=== PATIENT | female | born 1980 | race African-American/Black ===

== ENCOUNTER 2018-12-05 16:28 | Inpatient (IN) | payer SELFPAY ==
[~2018-12-05] VITALS: Ht 152.4 cm; Wt 54.4 kg
--- NOTE | 2018-12-05 16:39 | NUR ---
called- not in room
[2018-12-05 17:30] LABS: BASOPHILS % (AUTO) 2.1 % (0.0-2.0); HEMATOCRIT 45.4 % (37.0-47.0); MEAN CORPUSCULAR VOLUME 98 FL (80-99); MONOCYTES % (AUTO) 6.6 % (1.0-10.0); NEUTROPHILS % (AUTO) 77.2 % (45.0-75.0); PLATELET COUNT 310 K/UL (150-450); RED BLOOD COUNT 4.61 M/UL (4.20-5.40); RED CELL DISTRIBUTION WIDTH 11.2 % (11.6-14.8); WHITE BLOOD COUNT 7.4 K/UL (4.8-10.8)
[2018-12-05 17:44] LABS: INR 0.9 (0.9-1.1)
[2018-12-05] MEDS ORDERED: Nail Polish Remover TOPIC ONE (17:45)
[2018-12-05 17:46] LABS: APPEARANCE,URINE CLEAR; BILIRUBIN, URINE NEGATIVE (NEGATIVE); COLOR,URINE PALE YELLOW; GLUCOSE, URINE (UA) NEGATIVE (NEGATIVE); KETONES,URINE 4+ (NEGATIVE); LEUKOCYTE ESTERASE ,URINE 2+ (NEGATIVE); NITRITE,URINE NEGATIVE (NEGATIVE); PH,URINE 5 (4.5-8.0); PROTEIN,URINE 2+ (NEGATIVE); UROBILINOGEN,URINE NORMAL MG/DL (0.0-1.0)
[2018-12-05 17:59] LABS: ALANINE AMINOTRANSFERASE 14 U/L (12-78); ALBUMIN 4.5 G/DL (3.4-5.0); ALKALINE PHOSPHATASE 55 U/L (46-116); ANION GAP 8 mmol/L (5-15); ASPARTATE AMINO TRANSFERASE 13 U/L (15-37); BILIRUBIN,TOTAL 0.6 MG/DL (0.2-1.0); BLOOD UREA NITROGEN 9 mg/dL (7-18); CARBON DIOXIDE 28 MMOL/L (21-32); CHLORIDE 100 MMOL/L (98-107); CKMB < 0.5 NG/ML (0.0-3.6); CREATININE 0.9 MG/DL (0.55-1.30); POTASSIUM 4.7 MMOL/L (3.5-5.1); SODIUM 136 MMOL/L (136-145)
[2018-12-05 18:00] LABS: CALCIUM 14.6 MG/DL (8.5-10.1)
[2018-12-05 18:14] VITALS: BP 150/96
--- NOTE | 2018-12-05 18:17 | NUR ---
ED Nurse Note: pt from home c/o abd pain that goes to back ermd eval done blood and urine sent . nail syrian remover not used returned to pharmacy and ivf changed to ns bolus pt down to ct
--- NOTE | 2018-12-05 19:15 | NUR ---
ED Nurse Note: RECIEVED REPORT FROM AM NURSE TO RESUME CARE, PT IN BED AWAKE, ALERT AND ORIENTED X 4, PT AMBULATED TO BATHROOM AND [id number] WELL, HAS PATENT SALINE LOCK IN RIGHT AC, FLUIDS INFUSING, PT DENIES PAIN AT THIS TIME, WILL RESUME CARE AND PREPARE FOR ADMISSION, PT HAS ROOM BUT NO MD TO MD CONTACT YET, WAITING FO9R OK TO SEND TO FLOOR BED. PT FAMILY AT BEDSIDE.
--- NOTE | 2018-12-05 19:24 | NUR ---
HAND-OFF: Report given to Altagracia SEQUEIRA.
[2018-12-05] MEDS ORDERED: NKM (19:33)
[2018-12-05] MEDS ORDERED: Miralax 17gm pkt ORAL PRN (19:45)
[2018-12-05] MEDS ORDERED: Promethazine HCl 25 MG in NS 55 ML IV PRN (19:45)
[2018-12-05] MEDS ORDERED: Promethazine HCl 12.5 MG in NS 55 ML IV PRN (19:45)
[2018-12-05] MEDS ORDERED: Nitroglycerin Subl 0.4mg tab SL PRN (19:45)
[2018-12-05] MEDS ORDERED: LORazepam Inj 2mg/ml 1ml IV PRN (19:45)
[2018-12-05 20:00] VITALS: BP 136/91
[2018-12-05] MEDS ORDERED: D5 1/2NS 1,000 ML IV SCH (20:00)
--- NOTE | 2018-12-05 20:10 | NUR ---
PT HAD EPISODE OF VOMITING X 2 WITH INCREASD PAIN, PT MEDICATED WITH PRN MEDS, ERMAINS ON MONITORING, IV PATENT WITH FLUIDS INFUSING, WILL MONITOR CLOSELY FOR MED EFFCTIVENESS OR ANY ACUTE CHANGES, CONTINUING TO WAIT FOR OK TO ADMIT.
[2018-12-05] MEDS: Metoclopramide 10mg/2ml Inj IVP PRN (20:22)
[2018-12-05] MEDS: Morphine Sulfate 2mg/ml Inj(IV/IM USE ONLY) IVP PRN (20:24)
--- NOTE | 2018-12-05 20:24 | Emergency Room Report ---
History of Present Illness General Chief Complaint: Nausea Source: Patient (Bebe Guzmán) Present Illness HPI 38-year-old female with no significant past medical history here complaining of 4 days of acute onset of left lower quadrant abdominal pain and multiple bouts of nonbloody emesis. Patient does not recall whether it started after eating certain food denying eating anything greasy, acidic, spicy. Denies alcohol intake, smoking tobacco, or any drug use. Patient complains of constipation and reports that the last time she made a bowel movement and was in shapes of pallets however denies any blood in her stool. Denies fever and chills, chest pain, shortness of breath, palpitation, dizziness and headache. Patient last menstrual. Was 3 weeks ago and reports that she did a test at home was negative. Denies vaginal discharge, bleeding, hematuria, urinary symptoms. She further complains of new onset of 10 out of 10 headache that started today without radiation. Also reports that for a few weeks she has been having 5 out of 10 pain without any injury in both eyes and generalized weakness. Patient is self-pay and has not been seen by any physician in over 1 year. Denies psychiatric history, intake of any medication or supplements. (Bebe Guzmán) Allergies: Coded Allergies: No Known Allergies (Unverified , 12/05/18) Patient History Past Medical History: see triage record Past Surgical History: unable to obtain Pertinent Family History: none Last Menstrual Period: 11/17/18 Now: No Immunizations: UTD Reviewed Nursing Documentation: PMH: Agreed; PSxH: Agreed (Bebe Guzmán) Nursing Documentation-PMH Past Medical History: No History, Except For (Bebe Guzmán) Review of Systems All Other Systems: negative except mentioned in HPI (Bebe Guzmán) Physical Exam Vital Signs Date Time Temp Pulse Resp B/P (MAP) Pulse Ox O2 Delivery O2 Flow Rate FiO2 12/05/18 16:42 98.4 106 16 150/109 (123) 99 Room Air Sp02 EP Interpretation: reviewed, normal General Appearance: normal inspection, well appearing, no apparent distress, alert, GCS 15 Head: normocephalic, atraumatic Eyes: bilateral eye normal inspection, bilateral eye PERRL ENT: normal ENT inspection, hearing grossly normal, normal pharynx Neck: normal inspection, full range of motion, supple, thyroid normal Respiratory: normal inspection, chest non-tender, normal breath sounds, no rhonchi, no retraction, no wheezing Cardiovascular #1: normal inspection, regular rate, rhythm, no edema, no murmur Gastrointestinal: non tender, soft, no mass, no pulsatile mass, guarding - LLQ , other - Negative McBurney's and Rovsing's Rectal: deferred Genitourinary: no CVA tenderness Musculoskeletal: normal inspection, back normal, digits/nails normal Neurologic: normal inspection, alert, oriented x3, responsive, groundman III-XII nml as tested Psychiatric: normal inspection, judgement/insight normal Skin: no rash, palpation normal, normal color Lymphatic: normal inspection, no adenopathy (Bebe Guzmán) Medical Decision Making PA Attestation Diagnosis and treatment plans were reviewed and discussed with my supervising physician Dr. Dia (Bebe Guzmán) Medicare Attestation I discussed the care with Bebe MUNGUIA on 12/05/2018. I agree with the findings and plan as documented in the note. 38-year-old female presents with symptomatic hypercalcemia, unknown origin, patient will need to be admitted for observation, and work-up of her new onset of hypercalcemia, differential includes hyperparathyroidism, malignancy. Fluid rehydration was given, patient was admitted (Silvio Dia M.D.) Diagnostic Impression: Primary Impression: Hypercalcemia Additional Impression: Diffuse leiomyomatosis of uterus ER Course 38-year-old female with no significant past medical history here complaining of 4 days of acute onset of left lower quadrant abdominal pain and multiple bouts of nonbloody emesis. Patient does not recall whether it started after eating certain food denying eating anything greasy, acidic, spicy. Denies alcohol intake, smoking tobacco, or any drug use. Patient complains of constipation and reports that the last time she made a bowel movement and was in shapes of pallets however denies any blood in her stool. Denies fever and chills, chest pain, shortness of breath, palpitation, dizziness and headache. Patient last menstrual. Was 3 weeks ago and reports that she did a test at home was negative. Denies vaginal discharge, bleeding, hematuria, urinary symptoms. She further complains of new onset of 10 out of 10 headache that started today without radiation. Also reports that for a few weeks she has been having 5 out of 10 pain without any injury in both eyes and generalized weakness. Patient is self-pay and has not been seen by any physician in over 1 year. Denies psychiatric history, intake of any medication or supplements. Ddx considered but are not limited to: appendicitis, cholycisitis, gastritis, gasthroentritis, UTI, pylonephritis, SBO, diverticulitis, influenza with GI manifestation, TX, complication with , abdominal pain secondary to hypercalcemia Vital signs: are WNL, pt. is afebrile H&PE are most consistent with: Abdominal pain secondary to hypercalcemia ORDERS: abdominal CT, abdominal pain set, EKG, ED INTERVENTIONS: NS bolus, Zofran, Reglan Patient was admited with diagnosis of hypercalcemia symptomatic to Dr. Momin under supervision of : [place] pt stable at time of admission ca 14.6 (Bebe Guzmán) Chest X-Ray Diagnostic Results Chest X-Ray Diagnostic Results : Chest X-Ray Ordered: Yes # of Views/Limited/Complete: 1 View Indication: Chest Pain EP Interpretation: Yes PA Xray: Interpretation reviewed, by supervising MD, and agrees with findings. Interpretation: no consolidation, no effusion, no pneumothorax Impression: No acute disease Electronically Signed by: Bebe Faustin PA-C) CT/MRI/US Diagnostic Results CT/MRI/US Diagnostic Results #1: Imaging Test Ordered: CT abdomen pelvis no contrast Impression CT ABDOMEN & PELVIS Without Contrast: Normal appendix. No acute process along the GI tract. Leiomyomatous uterus. The remainder the solid organs are unremarkable. No free fluid or inflammatory changes. CT/MRI/US Diagnostic Results #2: Imaging Test Ordered: CT head no contrast Impression CT HEAD Without Contrast: No acute intracranial hemorrhage, extra-axial fluid collection, edema, mass effect, or ischemic infarct. The paranasal sinuses and mastoid air cells are clear. No fracture. (Bebe Guzmán) Last Vital Signs Date Time Temp Pulse Resp B/P (MAP) Pulse Ox O2 Delivery O2 Flow Rate FiO2 12/05/18 18:14 98.4 90 13 150/96 100 Room Air (Bebe Guzmán) Disposition: ADMITTED INPATIENT Condition: Stable Referrals: NOT CHOSEN IPA/,REFERRING (PCP) Bebe Guzmán Dec 05, 2018 20:24 Silvio Dia M.D. Dec 06, 2018 11:32
--- NOTE | 2018-12-05 20:40 | NUR ---
ED Nurse Note: Pt now ready for admission, report called to cristiano keane on unit, pt in bed awake, alert and oriented x 4, reglan and morphine givn effective , pain at 5/10 and vomiting resolved, iv site patent, belongings list completed, all forms and admit packet present, pt being taken to unit via gurney and acls protocols, nad noted during transpsort to floor bed with rn and er-tech.
[2018-12-05 21:00] VITALS: BP 120/76
--- NOTE | 2018-12-05 21:00 | NUR ---
received pt from ER, pt AAOX4, ambulatory, no past medical history. pt constipated, no BM for the last 4 days, fall precaution in place: bed locked and lowest position, bed side rail up x2, will continue to monitor for n/v. admission orders noted and carried out.
[2018-12-05] MEDS: Heparin 5000 units/ml inj SUBQ SCH (21:20)
--- NOTE | 2018-12-05 22:20 | Consultation ---
Consult Note Consult Note 38-year-old female with no significant past medical history here complaining of 4 days of acute onset of left lower quadrant abdominal pain and multiple bouts of nonbloody emesis. Patient does not recall whether it started after eating certain food denying eating anything greasy, acidic, spicy. Denies alcohol intake, smoking tobacco, or any drug use. Patient complains of constipation and reports that the last time she made a bowel movement and was in shapes of pallets however denies any blood in her stool. Denies fever and chills, chest pain, shortness of breath, palpitation, dizziness and headache. Patient last menstrual. Was 3 weeks ago and reports that she did a test at home was negative. Denies vaginal discharge, bleeding, hematuria, urinary symptoms. She further complains of new onset of 10 out of 10 headache that started today without radiation. Also reports that for a few weeks she has been having 5 out of 10 pain without any injury in both eyes and generalized weakness. Patient is self-pay and has not been seen by any physician in over 1 year. Denies psychiatric history, intake of any medication or supplements. Allergies: Coded Allergies: No Known Allergies (Unverified , 12/05/18) interviewed denies taking any Vit supplement Assessment/Plan Hypercalcemia: Etiology?? plan Hydrate Lasix PTH TSH Phos Mag Calcitonin per orders Alfredo Charles MD Dec 05, 2018 22:20
[2018-12-06] VITALS: BP 128/88
--- NOTE | 2018-12-06 | NUR ---
NURSE NOTES: pt sleeping, no change in condition. will continue to monitor for any change in condition.
[2018-12-06 04:00] VITALS: BP 125/77
--- NOTE | 2018-12-06 05:10 | NUR ---
NURSE NOTES: pt stable, no change in condition. will continue to monitor for any change in condition.
--- NOTE | 2018-12-06 06:47 | NUR ---
NURSE NOTES: pt remains stable, no change in condition. no N/V or abd pain during my shift. pt NPO. fall precautions in place: bed locked and lowest position. bedside rail up x 2, call light and personal belongings within pt's reach. all needs met during my shift. will endorse plan of care to incoming nurse.
--- NOTE | 2018-12-06 07:17 | NUR ---
HAND-OFF: Report given to HUA Gil.
--- NOTE | 2018-12-06 07:25 | NUR ---
NURSE NOTES: I received the patient awake and resting in bed. Patient alert and oriented x4. Patient's bed in the lowest position and call light within reach. Patient does not display any signs of distress or SOB. I will continue to monitor the patient and implement care.
[2018-12-06 07:51] LABS: BASOPHILS % (AUTO) 0.9 % (0.0-2.0); EOSINOPHILS % (AUTO) 0.3 % (0.0-3.0); HEMATOCRIT 39.3 % (37.0-47.0); HEMOGLOBIN 13.2 G/DL (12.0-16.0); LYMPHOCYTES % (AUTO) 22.4 % (20.0-45.0); MEAN CORPUSCULAR VOLUME 99 FL (80-99); MONOCYTES % (AUTO) 9.1 % (1.0-10.0); NEUTROPHILS % (AUTO) 67.3 % (45.0-75.0); PLATELET COUNT 268 K/UL (150-450); RED BLOOD COUNT 3.98 M/UL (4.20-5.40); RED CELL DISTRIBUTION WIDTH 11.4 % (11.6-14.8); WHITE BLOOD COUNT 5.3 K/UL (4.8-10.8)
[2018-12-06 08:00] VITALS: BP 111/70
[2018-12-06 08:20] LABS: ALANINE AMINOTRANSFERASE 9 U/L (12-78); ALBUMIN 3.4 G/DL (3.4-5.0); ALBUMIN/GLOBULIN RATIO 0.8 (1.0-2.7); ALKALINE PHOSPHATASE 46 U/L (46-116); AMYLASE 39 U/L (25-115); ANION GAP 8 mmol/L (5-15); ASPARTATE AMINO TRANSFERASE 11 U/L (15-37); BILIRUBIN,TOTAL 0.5 MG/DL (0.2-1.0); BLOOD UREA NITROGEN 8 mg/dL (7-18); CARBON DIOXIDE 25 MMOL/L (21-32); CHLORIDE 106 MMOL/L (98-107); CHOLESTEROL 137 MG/DL (< 200); CREATININE 0.9 MG/DL (0.55-1.30); HDL CHOLESTEROL 43 MG/DL (40-60); POTASSIUM 4.6 MMOL/L (3.5-5.1); SODIUM 139 MMOL/L (136-145); TRIGLYCERIDES 75 MG/DL (30-150)
[2018-12-06 08:25] LABS: CALCIUM 13.2 MG/DL (8.5-10.1)
[2018-12-06 08:29] LABS: CREATINE KINASE 17 U/L (26-308); GAMMA GLUTAMYL TRANSPEPTIDASE 21 U/L (5-85); PHOSPHORUS 1.9 MG/DL (2.5-4.9)
[2018-12-06] MEDS ORDERED: Docusate 100mg cap ORAL SCH (09:00)
[2018-12-06] MEDS ORDERED: Pantoprazole Inj IV SCH (09:00)
[2018-12-06] MEDS: Heparin 5000 units/ml inj SUBQ SCH ×2 (09:05→21:00)
[2018-12-06] MEDS: D5 1/2NS 1,000 ML IV SCH ×2 (10:39→18:23)
--- NOTE | 2018-12-06 10:42 | Consultation ---
History of Present Illness General Date patient seen: Dec 06, 2018 Chief Complaint: Nausea Reason for Consultation: Abd pain Present Illness HPI Ms. Holliday is a 38 yo female who presented to the ED on 12/05/18 with 4 days of abdmonal pain and vomiting. She reports no diarrhea but dose have an Hx of constipation. When she does have a BM she reports small round stools. Other associated symptom os headaches. She has had no associated f/c, Dysuria, Hematuria, Blood in stool, SOB, Sick contacts. ID was consulted for Abd pain PMHx/PSHx None SocHx No E/T/D FamHx Not Contributory Allergies: Coded Allergies: No Known Allergies (Unverified , 12/05/18) Medication History Scheduled No Known Medications* (NKM - No Known Medications*), 0 ., (Reported) Patient History Healthcare decision maker Resuscitation status Full Code Advanced Directive on File No Review of Systems ROS Narrative 12 point ROS negative except as noted in the HPI Physical Exam Last 24 Hour Vital Signs Date Time Temp Pulse Resp B/P (MAP) Pulse Ox O2 Delivery O2 Flow Rate FiO2 12/06/18 09:00 Room Air 12/06/18 08:00 97.1 58 20 111/70 (84) 100 12/06/18 08:00 59 12/06/18 04:00 57 12/06/18 04:00 98.0 92 19 125/77 (93) 99 12/06/18 00:00 98.5 87 19 128/88 (101) 99 12/06/18 00:00 61 12/05/18 22:23 Room Air 12/05/18 21:12 98.4 82 16 136/91 100 Room Air 12/05/18 21:00 98.6 98 20 120/76 (91) 100 12/05/18 21:00 83 12/05/18 20:00 98.4 82 16 136/91 100 Room Air 12/05/18 18:14 98.4 90 13 150/96 100 Room Air 12/05/18 16:42 98.4 106 16 150/109 (123) 99 Room Air Intake and Output 12/05/18 12/06/18 18:59 06:59 Intake Total 1500 ml Balance 1500 ml Intake IV Total 600 ml Other 900 ml # Voids 1 4 Laboratory Tests Test 7/13/19 17:10 12/05/18 17:19 12/06/18 07:37 White Blood Count 7.4 K/UL (4.8-10.8) 5.3 K/UL (4.8-10.8) Red Blood Count 4.61 M/UL (4.20-5.40) 3.98 M/UL (4.20-5.40) L Hemoglobin 15.0 G/DL (12.0-16.0) 13.2 G/DL (12.0-16.0) Hematocrit 45.4 % (37.0-47.0) 39.3 % (37.0-47.0) Mean Corpuscular Volume 98 FL (80-99) 99 FL (80-99) Mean Corpuscular Hemoglobin 32.5 PG (27.0-31.0) H 33.1 PG (27.0-31.0) H Mean Corpuscular Hemoglobin Concent 33.0 G/DL (32.0-36.0) 33.6 G/DL (32.0-36.0) Red Cell Distribution Width 11.2 % (11.6-14.8) L 11.4 % (11.6-14.8) L Platelet Count 310 K/UL (150-450) 268 K/UL (150-450) Mean Platelet Volume 6.6 FL (6.5-10.1) 6.8 FL (6.5-10.1) Neutrophils (%) (Auto) 77.2 % (45.0-75.0) H 67.3 % (45.0-75.0) Lymphocytes (%) (Auto) 14.0 % (20.0-45.0) L 22.4 % (20.0-45.0) Monocytes (%) (Auto) 6.6 % (1.0-10.0) 9.1 % (1.0-10.0) Eosinophils (%) (Auto) 0.0 % (0.0-3.0) 0.3 % (0.0-3.0) Basophils (%) (Auto) 2.1 % (0.0-2.0) H 0.9 % (0.0-2.0) Prothrombin Time 10.0 SEC (9.30-11.50) Prothromb Time International Ratio 0.9 (0.9-1.1) Activated Partial Thromboplast Time 32 SEC (23-33) 35 SEC (23-33) H Sodium Level 136 MMOL/L (136-145) 139 MMOL/L (136-145) Potassium Level 4.7 MMOL/L (3.5-5.1) 4.6 MMOL/L (3.5-5.1) Chloride Level 100 MMOL/L (98-107) 106 MMOL/L (98-107) Carbon Dioxide Level 28 MMOL/L (21-32) 25 MMOL/L (21-32) Anion Gap 8 mmol/L (5-15) 8 mmol/L (5-15) Blood Urea Nitrogen 9 mg/dL (7-18) 8 mg/dL (7-18) Creatinine 0.9 MG/DL (0.55-1.30) 0.9 MG/DL (0.55-1.30) Estimat Glomerular Filtration Rate > 60 mL/min (>60) > 60 mL/min (>60) Glucose Level 123 MG/DL (74-106) H 116 MG/DL (74-106) H Calcium Level 14.6 MG/DL (8.5-10.1) *H 13.2 MG/DL (8.5-10.1) *H Total Bilirubin 0.6 MG/DL (0.2-1.0) 0.5 MG/DL (0.2-1.0) Aspartate Amino Transf (AST/SGOT) 13 U/L (15-37) L 11 U/L (15-37) L Alanine Aminotransferase (ALT/SGPT) 14 U/L (12-78) 9 U/L (12-78) L Alkaline Phosphatase 55 U/L (46-116) 46 U/L (46-116) Creatine Kinase MB < 0.5 NG/ML (0.0-3.6) Troponin I 0.004 ng/mL (0.000-0.056) Total Protein 8.9 G/DL (6.4-8.2) H 7.7 G/DL (6.4-8.2) Albumin 4.5 G/DL (3.4-5.0) 3.4 G/DL (3.4-5.0) Globulin 4.4 g/dL 4.3 g/dL Albumin/Globulin Ratio 1.0 (1.0-2.7) 0.8 (1.0-2.7) L Lipase 57 U/L (73-393) L 66 U/L (73-393) L Serum Alcohol < 3 mg/dL Urine Color Pale yellow Urine Appearance Clear Urine pH 5 (4.5-8.0) Urine Specific [place] 1.025 (1.005-1.035) Urine Protein 2+ (NEGATIVE) H Urine Glucose (UA) Negative (NEGATIVE) Urine Ketones 4+ (NEGATIVE) H Urine Blood 1+ (NEGATIVE) H Urine Nitrite Negative (NEGATIVE) Urine Bilirubin Negative (NEGATIVE) Urine Urobilinogen Normal MG/DL (0.0-1.0) Urine Leukocyte Esterase 2+ (NEGATIVE) H Urine RBC 2-4 /HPF (0 - 2) H Urine WBC 10-15 /HPF (0 - 2) H Urine Squamous Epithelial Cells Moderate /LPF (NONE/OCC) H Urine Bacteria Moderate /HPF (NONE) H Urine HCG, Qualitative Negative (NEGATIVE) Urine Opiates Screen Negative (NEGATIVE) Urine Barbiturates Screen Negative (NEGATIVE) Phencyclidine (PCP) Screen Negative (NEGATIVE) Urine Amphetamines Screen Negative (NEGATIVE) Urine Benzodiazepines Screen Negative (NEGATIVE) Urine Cocaine Screen Negative (NEGATIVE) Urine Marijuana (THC) Screen Positive (NEGATIVE) H Hemoglobin A1c 4.8 % (4.3-6.0) Uric Acid 2.5 MG/DL (2.6-7.2) L Calcium (Send out) Pending Phosphorus Level 1.9 MG/DL (2.5-4.9) L Magnesium Level 2.0 MG/DL (1.8-2.4) Gamma Glutamyl Transpeptidase 21 U/L (5-85) Total Creatine Kinase 17 U/L (26-308) L C-Reactive Protein, Quantitative 1.9 mg/dL (0.00-0.90) H Pro-B-Type Natriuretic Peptide 94 pg/mL (0-125) Triglycerides Level 75 MG/DL (30-150) Cholesterol Level 137 MG/DL (< 200) LDL Cholesterol 76 mg/dL (<100) HDL Cholesterol 43 MG/DL (40-60) Cholesterol/HDL Ratio 3.2 (3.3-4.4) L Amylase Level 39 U/L (25-115) Thyroid Stimulating Hormone (TSH) 1.052 uiU/mL (0.358-3.740) Parathyroid Hormone (Intact) Pending Microbiology Date/Time Source Procedure Growth Status 12/05/18 17:19 Urine,Clean Catch Urine Culture - Preliminary Gram Negative Santhosh Resulted Height (Feet): 5 Weight (Pounds): 120 Medications Current Medications Medications (Trade) Dose Ordered Sig/Oral Route PRN Reason Start Time Stop Time Status Last Admin Dose Admin Acetaminophen (Tylenol) 650 mg Q4H PRN ORAL fever (temp>100.5F) 12/05/18 19:45 01/04/19 19:44 Calcitonin [place] (Miacalcin) 1 sprays DAILY NASAL 12/06/18 09:00 01/05/19 08:59 12/06/18 09:59 Clonidine HCl (Catapres Tab) 0.1 mg Q4H PRN ORAL bp 165 syst 12/05/18 22:30 01/04/19 22:29 Dextrose (Dextrose 50%) 25 ml Q30M PRN IV Hypoglycemia 12/05/18 19:45 01/04/19 19:44 Dextrose (Dextrose 50%) 50 ml Q30M PRN IV Hypoglycemia 12/05/18 19:45 01/04/19 19:44 Dextrose/Sodium Chloride 1,000 ml @ 125 mls/hr Q8H IV 12/06/18 10:23 01/05/19 10:22 Diphenhydramine HCl (Benadryl) 25 mg Q6H PRN ORAL Itching/Pruritis 12/05/18 19:45 01/04/19 19:44 Docusate Sodium (Colace) 100 mg TWICE A DAY ORAL 12/06/18 09:00 01/05/19 08:59 12/06/18 09:04 Furosemide (Lasix) 20 mg ONCE IV 12/06/18 10:30 12/06/18 12:00 Heparin Sodium (Porcine) (Heparin 5000 units/ml) 5,000 units EVERY 12 HOURS SUBQ 12/05/18 21:00 01/04/19 20:59 12/06/18 09:05 Lorazepam (Ativan 2mg/ml 1ml) 1 mg Q4H PRN IV agitation 12/05/18 19:45 12/12/18 19:44 Metoclopramide HCl (Reglan) 10 mg Q6H PRN IVP severe nausea 12/05/18 19:45 01/04/19 19:44 12/05/18 20:22 Morphine Sulfate (Morphine Sulfate) 2 mg Q4H PRN IVP severe Pain (Pain Scale 7-10) 12/05/18 19:45 12/12/18 19:44 12/05/18 20:24 Nitroglycerin (Ntg) 0.4 mg Q5M X 3 DOSES PRN SL Prn Chest Pain 12/05/18 19:45 01/04/19 19:44 Pantoprazole (Protonix) 40 mg ACBREAKFAST ORAL 12/06/18 06:30 01/05/19 06:29 12/06/18 06:01 Polyethylene Glycol (Miralax) 17 gm HSPRN PRN ORAL Constipation 12/05/18 19:45 01/04/19 19:44 Promethazine HCl 25 mg/Sodium Chloride 56 ml @ 110 mls/hr Q6H PRN IV Refractory N/V 12/05/18 19:45 01/04/19 19:44 Temazepam (Restoril) 15 mg HSPRN PRN ORAL Insomnia 12/05/18 19:45 12/12/18 19:44 Objective Narrative Gen: NAD HEENT: NCAT, MMM, EOMI, PERRL, No Oral lesion, no scleral icterus NECK: full range of motion, supple, no meningismus, No LAD, No JVD LUNGS: CTAB, No W/C, No Accessory muscle use CARDS: RRR, S1, S2, No M/R/G, ABD: Soft, TTP epigastric and b/l LQ, ND, No R/G, + BS, No HSM, No Masses : Deferred Ext: C/C/E, Pulses 2+ B/L (DP, Rad): NEURO: A/O x 4, Strength and Sensation Grossly intact PSYCH: Normal mood and affect SKIN: Warm/dry, No rashes Assessment/Plan Assessment/Plan: 38 yo female who presented to the ED on 12/05/18 with 4 days of abdominal pain and vomiting. Abd pain and nausea and constipation Viral gastritis vs IBD vs other give Small round feces could indicate intestinal pathology Aferbile No leucocytosis Bacteriuria Asymptomatic UCx 12/05/18 - GNR PLAN: - Continue to monitor off abx - f/u CT scan - Supportive care Thank you for this consult. We will continue to follow the patient during this hospitalization. Olaf Lilly MD Dec 06, 2018 10:42
[2018-12-06] MEDS: Metoclopramide 10mg/2ml Inj IVP PRN (10:56)
[2018-12-06] MEDS: Morphine Sulfate 2mg/ml Inj(IV/IM USE ONLY) IVP PRN (10:57)
[2018-12-06 12:00] VITALS: BP 118/96
--- NOTE | 2018-12-06 13:21 | Cardiology Progress Note ---
Assessment/Plan Assessment/Plan The patient is seen and examined, full consult note will be dictated. Objective Last 24 Hour Vital Signs Date Time Temp Pulse Resp B/P (MAP) Pulse Ox O2 Delivery O2 Flow Rate FiO2 12/06/18 12:00 68 12/06/18 12:00 97.4 60 20 118/96 (103) 100 12/06/18 11:27 97.4 12/06/18 09:00 Room Air 12/06/18 08:00 97.1 58 20 111/70 (84) 100 12/06/18 08:00 59 12/06/18 04:00 57 12/06/18 04:00 98.0 92 19 125/77 (93) 99 12/06/18 00:00 98.5 87 19 128/88 (101) 99 12/06/18 00:00 61 12/05/18 22:23 Room Air 12/05/18 21:12 98.4 82 16 136/91 100 Room Air 12/05/18 21:00 98.6 98 20 120/76 (91) 100 12/05/18 21:00 83 12/05/18 20:00 98.4 82 16 136/91 100 Room Air 12/05/18 18:14 98.4 90 13 150/96 100 Room Air 12/05/18 16:42 98.4 106 16 150/109 (123) 99 Room Air Intake and Output 12/05/18 12/06/18 18:59 06:59 Intake Total 1500 ml Balance 1500 ml Intake IV Total 600 ml Other 900 ml # Voids 1 4 Laboratory Tests Test 12/05/18 17:10 12/05/18 17:19 12/06/18 07:37 White Blood Count 7.4 K/UL (4.8-10.8) 5.3 K/UL (4.8-10.8) Red Blood Count 4.61 M/UL (4.20-5.40) 3.98 M/UL (4.20-5.40) L Hemoglobin 15.0 G/DL (12.0-16.0) 13.2 G/DL (12.0-16.0) Hematocrit 45.4 % (37.0-47.0) 39.3 % (37.0-47.0) Mean Corpuscular Volume 98 FL (80-99) 99 FL (80-99) Mean Corpuscular Hemoglobin 32.5 PG (27.0-31.0) H 33.1 PG (27.0-31.0) H Mean Corpuscular Hemoglobin Concent 33.0 G/DL (32.0-36.0) 33.6 G/DL (32.0-36.0) Red Cell Distribution Width 11.2 % (11.6-14.8) L 11.4 % (11.6-14.8) L Platelet Count 310 K/UL (150-450) 268 K/UL (150-450) Mean Platelet Volume 6.6 FL (6.5-10.1) 6.8 FL (6.5-10.1) Neutrophils (%) (Auto) 77.2 % (45.0-75.0) H 67.3 % (45.0-75.0) Lymphocytes (%) (Auto) 14.0 % (20.0-45.0) L 22.4 % (20.0-45.0) Monocytes (%) (Auto) 6.6 % (1.0-10.0) 9.1 % (1.0-10.0) Eosinophils (%) (Auto) 0.0 % (0.0-3.0) 0.3 % (0.0-3.0) Basophils (%) (Auto) 2.1 % (0.0-2.0) H 0.9 % (0.0-2.0) Prothrombin Time 10.0 SEC (9.30-11.50) Prothromb Time International Ratio 0.9 (0.9-1.1) Activated Partial Thromboplast Time 32 SEC (23-33) 35 SEC (23-33) H Sodium Level 136 MMOL/L (136-145) 139 MMOL/L (136-145) Potassium Level 4.7 MMOL/L (3.5-5.1) 4.6 MMOL/L (3.5-5.1) Chloride Level 100 MMOL/L (98-107) 106 MMOL/L (98-107) Carbon Dioxide Level 28 MMOL/L (21-32) 25 MMOL/L (21-32) Anion Gap 8 mmol/L (5-15) 8 mmol/L (5-15) Blood Urea Nitrogen 9 mg/dL (7-18) 8 mg/dL (7-18) Creatinine 0.9 MG/DL (0.55-1.30) 0.9 MG/DL (0.55-1.30) Estimat Glomerular Filtration Rate > 60 mL/min (>60) > 60 mL/min (>60) Glucose Level 123 MG/DL (74-106) H 116 MG/DL (74-106) H Calcium Level 14.6 MG/DL (8.5-10.1) *H 13.2 MG/DL (8.5-10.1) *H Total Bilirubin 0.6 MG/DL (0.2-1.0) 0.5 MG/DL (0.2-1.0) Aspartate Amino Transf (AST/SGOT) 13 U/L (15-37) L 11 U/L (15-37) L Alanine Aminotransferase (ALT/SGPT) 14 U/L (12-78) 9 U/L (12-78) L Alkaline Phosphatase 55 U/L (46-116) 46 U/L (46-116) Creatine Kinase MB < 0.5 NG/ML (0.0-3.6) Troponin I 0.004 ng/mL (0.000-0.056) Total Protein 8.9 G/DL (6.4-8.2) H 7.7 G/DL (6.4-8.2) Albumin 4.5 G/DL (3.4-5.0) 3.4 G/DL (3.4-5.0) Globulin 4.4 g/dL 4.3 g/dL Albumin/Globulin Ratio 1.0 (1.0-2.7) 0.8 (1.0-2.7) L Lipase 57 U/L (73-393) L 66 U/L (73-393) L Serum Alcohol < 3 mg/dL Urine Color Pale yellow Urine Appearance Clear Urine pH 5 (4.5-8.0) Urine Specific [place] 1.025 (1.005-1.035) Urine Protein 2+ (NEGATIVE) H Urine Glucose (UA) Negative (NEGATIVE) Urine Ketones 4+ (NEGATIVE) H Urine Blood 1+ (NEGATIVE) H Urine Nitrite Negative (NEGATIVE) Urine Bilirubin Negative (NEGATIVE) Urine Urobilinogen Normal MG/DL (0.0-1.0) Urine Leukocyte Esterase 2+ (NEGATIVE) H Urine RBC 2-4 /HPF (0 - 2) H Urine WBC 10-15 /HPF (0 - 2) H Urine Squamous Epithelial Cells Moderate /LPF (NONE/OCC) H Urine Bacteria Moderate /HPF (NONE) H Urine HCG, Qualitative Negative (NEGATIVE) Urine Opiates Screen Negative (NEGATIVE) Urine Barbiturates Screen Negative (NEGATIVE) Phencyclidine (PCP) Screen Negative (NEGATIVE) Urine Amphetamines Screen Negative (NEGATIVE) Urine Benzodiazepines Screen Negative (NEGATIVE) Urine Cocaine Screen Negative (NEGATIVE) Urine Marijuana (THC) Screen Positive (NEGATIVE) H Hemoglobin A1c 4.8 % (4.3-6.0) Uric Acid 2.5 MG/DL (2.6-7.2) L Calcium (Send out) Pending Phosphorus Level 1.9 MG/DL (2.5-4.9) L Magnesium Level 2.0 MG/DL (1.8-2.4) Gamma Glutamyl Transpeptidase 21 U/L (5-85) Total Creatine Kinase 17 U/L (26-308) L C-Reactive Protein, Quantitative 1.9 mg/dL (0.00-0.90) H Pro-B-Type Natriuretic Peptide 94 pg/mL (0-125) Triglycerides Level 75 MG/DL (30-150) Cholesterol Level 137 MG/DL (< 200) LDL Cholesterol 76 mg/dL (<100) HDL Cholesterol 43 MG/DL (40-60) Cholesterol/HDL Ratio 3.2 (3.3-4.4) L Amylase Level 39 U/L (25-115) Thyroid Stimulating Hormone (TSH) 1.052 uiU/mL (0.358-3.740) Parathyroid Hormone (Intact) Pending Microbiology Date/Time Source Procedure Growth Status 12/05/18 17:19 Urine,Clean Catch Urine Culture - Preliminary Gram Negative Santhosh Resulted Parker Bailey MD Dec 06, 2018 13:21
--- NOTE | 2018-12-06 13:29 | Nephrology Progress Note ---
Assessment/Plan Problem List: (1) Hypercalcemia (2) Diffuse leiomyomatosis of uterus Plan Hydrate Nasal Calcitonin One dose Aredia 12/06/18 Lasix PRN PTH level and Vit D level pending Subjective ROS Limited/Unobtainable: No Constitutional: Reports: malaise Objective Objective Last 24 Hour Vital Signs Date Time Temp Pulse Resp B/P (MAP) Pulse Ox O2 Delivery O2 Flow Rate FiO2 12/06/18 12:00 68 12/06/18 12:00 97.4 60 20 118/96 (103) 100 12/06/18 11:27 97.4 12/06/18 09:00 Room Air 12/06/18 08:00 97.1 58 20 111/70 (84) 100 12/06/18 08:00 59 12/06/18 04:00 57 12/06/18 04:00 98.0 92 19 125/77 (93) 99 12/06/18 00:00 98.5 87 19 128/88 (101) 99 12/06/18 00:00 61 12/05/18 22:23 Room Air 12/05/18 21:12 98.4 82 16 136/91 100 Room Air 12/05/18 21:00 98.6 98 20 120/76 (91) 100 12/05/18 21:00 83 12/05/18 20:00 98.4 82 16 136/91 100 Room Air 12/05/18 18:14 98.4 90 13 150/96 100 Room Air 12/05/18 16:42 98.4 106 16 150/109 (123) 99 Room Air Intake and Output 12/05/18 12/06/18 18:59 06:59 Intake Total 1500 ml Balance 1500 ml Intake IV Total 600 ml Other 900 ml # Voids 1 4 Laboratory Tests 12/05/18 17:10: White Blood Count 7.4, Red Blood Count 4.61, Hemoglobin 15.0, Hematocrit 45.4, Mean Corpuscular Volume 98, Mean Corpuscular Hemoglobin 32.5H, Mean Corpuscular Hemoglobin Concent 33.0, Red Cell Distribution Width 11.2L, Platelet Count 310, Mean Platelet Volume 6.6, Neutrophils (%) (Auto) 77.2H, Lymphocytes (%) (Auto) 14.0L, Monocytes (%) (Auto) 6.6, Eosinophils (%) (Auto) 0.0, Basophils (%) (Auto ) 2.1H, Prothrombin Time 10.0, Prothromb Time International Ratio 0.9, Activated Partial Thromboplast Time 32, Sodium Level 136, Potassium Level 4.7, Chloride Level 100, Carbon Dioxide Level 28, Anion Gap 8, Blood Urea Nitrogen 9 , Creatinine 0.9, Estimat Glomerular Filtration Rate > 60, Glucose Level 123H, Calcium Level 14.6*H, Total Bilirubin 0.6, Aspartate Amino Transf (AST/SGOT) 13L , Alanine Aminotransferase (ALT/SGPT) 14, Alkaline Phosphatase 55, Creatine Kinase MB < 0.5, Troponin I 0.004, Total Protein 8.9H, Albumin 4.5, Globulin 4.4 , Albumin/Globulin Ratio 1.0, Lipase 57L, Serum Alcohol < 3 12/05/18 17:19: Urine Color Pale yellow, Urine Appearance Clear, Urine pH 5, Urine Specific [place] 1.025, Urine Protein 2+H, Urine Glucose (UA) Negative, Urine Ketones 4+H , Urine Blood 1+H, Urine Nitrite Negative, Urine Bilirubin Negative, Urine Urobilinogen Normal, Urine Leukocyte Esterase 2+H, Urine RBC 2-4H, Urine WBC 10- 15H, Urine Squamous Epithelial Cells ModerateH, Urine Bacteria ModerateH, Urine HCG, Qualitative Negative, Urine Opiates Screen Negative, Urine Barbiturates Screen Negative, Phencyclidine (PCP) Screen Negative, Urine Amphetamines Screen Negative, Urine Benzodiazepines Screen Negative, Urine Cocaine Screen Negative, Urine Marijuana (THC) Screen PositiveH 12/06/18 07:37: White Blood Count 5.3, Red Blood Count 3.98L, Hemoglobin 13.2, Hematocrit 39.3, Mean Corpuscular Volume 99, Mean Corpuscular Hemoglobin 33.1H, Mean Corpuscular Hemoglobin Concent 33.6, Red Cell Distribution Width 11.4L, Platelet Count 268, Mean Platelet Volume 6.8, Neutrophils (%) (Auto) 67.3, Lymphocytes (%) (Auto) 22.4, Monocytes (%) (Auto) 9.1, Eosinophils (%) (Auto) 0.3, Basophils (%) (Auto ) 0.9, Activated Partial Thromboplast Time 35H, Sodium Level 139, Potassium Level 4.6, Chloride Level 106, Carbon Dioxide Level 25, Anion Gap 8, Blood Urea Nitrogen 8, Creatinine 0.9, Estimat Glomerular Filtration Rate > 60, Glucose Level 116H, Calcium Level 13.2*H, Total Bilirubin 0.5, Aspartate Amino Transf ( AST/SGOT) 11L, Alanine Aminotransferase (ALT/SGPT) 9L, Alkaline Phosphatase 46, Total Protein 7.7, Albumin 3.4, Globulin 4.3, Albumin/Globulin Ratio 0.8L, Lipase 66L, Hemoglobin A1c 4.8, Uric Acid 2.5L, Calcium (Send out) [Pending], Phosphorus Level 1.9L, Magnesium Level 2.0, Gamma Glutamyl Transpeptidase 21, Total Creatine Kinase 17L, C-Reactive Protein, Quantitative 1.9H, Pro-B-Type Natriuretic Peptide 94, Triglycerides Level 75, Cholesterol Level 137, LDL Cholesterol 76, HDL Cholesterol 43, Cholesterol/HDL Ratio 3.2L, Amylase Level 39 , Thyroid Stimulating Hormone (TSH) 1.052, Parathyroid Hormone (Intact) [Pending ] Height (Feet): 5 Weight (Pounds): 120 General Appearance: no apparent distress Cardiovascular: other - variable Respiratory/Chest: decreased breath sounds Abdomen: soft Alfredo Charles MD Dec 06, 2018 13:29
--- NOTE | 2018-12-06 14:29 | Diagnostic Imaging Report ---
Indication: Abdominal pain Technique: Continuous helical transaxial imaging of the abdomen and pelvis was obtained from the lung bases to the pubic symphysis. No intravenous contrast was administered. Coronal 2-D reformats were also obtained. Automatic Exposure Control was utilized. Total Dose length Product (DLP): 492.[address] Dose Index Volume (CTDIvol): 9.87 mGy Comparison: none Findings: The lung bases are clear. Noncontrast solid organ evaluation is suboptimal but the grossly negative. There is no nephrolithiasis or hydronephrosis. The appendix is normal. Bowel gas pattern is nonobstructive. There is a large mass in the fundal region of the uterus likely a fibroid suboptimally evaluated but probably measuring about 7 to 8 cm. Bladder is unremarkable. There is no free fluid. IMPRESSION: No acute findings. Prominent uterine fibroid. [facility] has communicated the preliminary results to the Emergency Department. Their findings are largely concordant with this report. The CT scanner at [facility] is accredited by the [employer] and the scans are performed using dose optimization techniques as appropriate to a performed exam including Automatic Exposure control.
--- NOTE | 2018-12-06 14:29 | Diagnostic Imaging Report ---
Indication: Headache Technique: Contiguous 5 mm thick transaxial imaging of the head obtained in a Siemens Sensation [address] scanner. Soft tissue and bone windows generated. Automatic Exposure Control was utilized. Total Dose length Product (DLP): 1418.[address] Dose Index Volume (CTDIvol): 70.38 mGy Comparison: none Findings: The size and configuration of the cortical sulci, basal cisterns, and ventricles are within normal limits for age. There is no mass effect, midline shift, or edema identified. There is no evidence of acute hemorrhage or abnormal intra-axial or extra-axial fluid collections. The bones and soft tissues are unremarkable. Impression: No mass effect, edema or acute bleed. [facility] has communicated the preliminary results to the Emergency Department. Their findings are largely concordant with this report. The CT scanner at [facility] is accredited by the [employer] and the scans are performed using dose optimization techniques as appropriate to a performed exam including Automatic Exposure control.
--- NOTE | 2018-12-06 14:30 | Diagnostic Imaging Report ---
Indication: Chest pain Comparison: None A single view chest radiograph was obtained. Findings: Cardiomediastinal appearance is within normal limits for age. The lungs are clear. Pulmonary vascularity is appropriate. The diaphragmatic contour is smooth and costophrenic angles are sharp. No pleural effusions are identified. The bones are unremarkable. Impression: No acute findings
--- NOTE | 2018-12-06 14:41 | NUR ---
PT Note PT beth completed. Patient is independent in all mobility and gait without any AD. No f/u PT needed at this time. Addendum: 12/06/18 at 1441 by NIGHAT SOLORZANO PT Amended: Links added.
[2018-12-06] MEDS ORDERED: Pamidronate Disodium Inj 90 MG in Sodium Chloride 550 ML IVPB ONE (15:00)
--- NOTE | 2018-12-06 16:00 | History and Physical Report ---
DATE OF ADMISSION: 12/05/2018 DATE AND TIME SEEN: 12/06/2018 at 9 a.m. CONSULTANTS: 1. Kermit Silva M.D. 2. Manoj Nguyễn M.D. 3. Alfredo Charles M.D. 4. Parker Bailey M.D. CHIEF COMPLAINT: Abdominal pain, headache, bone pain, chest pain. BRIEF HISTORY: This is a 38-year-old female who lives at home presented with abdominal pain, intermittently for about a week. Slight nausea, vomiting. Slight headache. Complains of slight chest pain as well and low back pain and some bone pain. The patient came to [place], diagnosed with the above, admitted to telemetry for further care. Currently, calm, in bed. No complaint. REVIEW OF SYSTEMS: Slight chest pain. Slight short of breath. Slight nausea, vomiting. No diarrhea. PAST MEDICAL HISTORY: Nothing. PAST SURGICAL HISTORY: None. ALLERGIES: Denies. SOCIAL HISTORY: Positive smoking. Positive alcohol. Positive marijuana use. PHYSICAL EXAMINATION: GENERAL: Calm in bed, oriented x3, no acute distress. VITAL SIGNS: Temperature is 97 degrees, pulse 58, respirations 20, blood pressure 111/70. CARDIOVASCULAR: No murmur. LUNGS: Distant and clear. ABDOMEN: Bowel sounds positive. Nontender and nondistended. EXTREMITIES: No cyanosis, clubbing, or edema. LABORATORY AND DIAGNOSTIC DATA: Labs at this time show CBC is normal. BMP shows glucose 116, uric acid 2.5, calcium 13.2, AST 11, ALT 9. Urine tox is positive for marijuana. Urinalysis, 2+ protein, 2+ leukocyte esterase. PTT is 35. INR is 0.9. MEDICATIONS: Include calcitonin, pantoprazole, clonidine, heparin, Tylenol, morphine, diphenhydramine, temazepam, Reglan. ASSESSMENT: Abdominal pain, headache, chest pain, low back pain, bone pain, hypercalcemia. PLAN: 1. Pain control. 2. GI followup. 3. Nephrology followup. 4. Cardiology followup. 5. CBC, BMP in the morning. 6. PT/Dietary eval. Lc Gomez D.O. DR: VI JOB#: [id number] CC:
--- NOTE | 2018-12-06 16:28 | NUR ---
HAND-OFF: Report given to HUA Ayala.
--- NOTE | 2018-12-06 17:15 | Consultation ---
DATE OF CONSULTATION: 12/06/2018 CARDIOLOGY CONSULTATION CONSULTING PHYSICIAN: Parker Bailey M.D. REFERRING PHYSICIAN: Lc Gomez D.O. REASON FOR CONSULTATION: Management of tachycardia. HISTORY OF PRESENT ILLNESS: The patient is a very unfortunate 38-year-old female, who presents to the hospital with acute onset of left lower quadrant abdominal pain with associated nonbloody emesis. The patient also has been complaining of constipation. At the time of arrival to the hospital, blood pressure is 150/109 mmHg and heart rate was 106. Cardiology consultation was made at request of Dr. Gomez for management and evaluation of hypertension as well as tachycardia. Initial laboratory finding in the emergency department revealed hypercalcemia with calcium level of 14.6. Troponin I level was negative. The patient was admitted to the telemetry for further evaluation and management. PAST MEDICAL HISTORY: None. PAST SURGICAL HISTORY: None. ALLERGIES: No known drug allergies. SOCIAL HISTORY: Denies any tobacco, alcohol, illicit drug use. FAMILY HISTORY: No premature coronary artery disease in first-degree relatives. REVIEW OF SYSTEMS: A 12-system review done, essentially negative except what mentioned in the history of present illness. PHYSICAL EXAMINATION: VITAL SIGNS: Blood pressure is 150/109, pulse of 106, respirations 16, temperature 98.4 degrees Fahrenheit, and O2 saturation 99% on room air. GENERAL: Very delightful 38-year-old female, in no apparent respiratory distress. HEENT: Atraumatic and normocephalic. Anicteric. Pupils are equal, round, and reactive to light and accommodation. Extraocular muscles intact. NECK: JVP is less than 5 cm. No carotid bruits. Carotid upstrokes 2+ bilaterally. CVS: Normal S1, S2. Regular rate and rhythm. Tachycardic. No murmurs, gallops, or rubs. PMI is at fourth intercostal space in the midclavicular line. LUNGS: Clear to auscultation bilaterally. ABDOMEN: Soft, nontender, and nondistended. No hepatosplenomegaly. Positive bowel sounds. EXTREMITIES: No evidence of edema, clubbing, or cyanosis. LABORATORY FINDINGS: Sodium 136, potassium is 4.7, chloride 100, bicarbonate 28, BUN 9, creatinine 0.9, glucose 123. Calcium is 14.6. Troponin I is 0.004. ProBNP was 94. Total cholesterol 137, LDL of 76, HDL of 43. INR is 0.9. Toxicology positive for marijuana. ASSESSMENT AND PLAN: The patient is a very unfortunate 38-year-old lady who is seen in Cardiology consultation. 1. Hypertension stage II. I suspect reviewing the laboratory findings in particular hypercalcemia, hypophosphatemia, primary hyperparathyroidism can cause hypertension. I would like to consider small dose of calcium channel demond. I would definitely avoid diuretics as this patient is hypovolemic due to hypercalcemia. 2. Sinus tachycardia. This is due to hypovolemia as the patient has been having multiple episodes of emesis, also hypercalcemia cause osmosis diuresis and loss of volume. The patient requires to be vigorously hydrated to increase intravascular volume. I would like to thank, Dr. Gomez, for allowing me to participate in care of this patient. Parker Bailey M.D. DR: Micaela JOB#: [id number] CC:
[2018-12-06] MEDS: Docusate 100mg cap ORAL SCH (17:31)
--- NOTE | 2018-12-06 19:31 | NUR ---
HAND-OFF: Report given to HUA Woodard. Pt. sleeping comfortably.
--- NOTE | 2018-12-06 19:40 | NUR ---
NURSE NOTES: Received pt from HUA Ayala. Pt asleep. Bed in lowest position. Call light within reach. Will continue to monitor
[2018-12-06 20:00] VITALS: BP 113/78
[2018-12-06] MEDS ORDERED: D5 1/2NS 1,000 ML IV SCH (20:00)
[2018-12-07] VITALS (7 sets, daily range): BP systolic 106–123; BP diastolic 67–86
[2018-12-07] MEDS: D5 1/2NS 1,000 ML IV SCH ×2 (02:23→06:32)
[2018-12-07] MEDS: Morphine Sulfate 2mg/ml Inj(IV/IM USE ONLY) IVP PRN ×2 (02:40→07:20)
--- NOTE | 2018-12-07 04:36 | NUR ---
NURSE NOTES: Called and left a message with Dr. Gomez regarding pts request for stronger laxative. Awaiting call back.
[2018-12-07] MEDS ORDERED: Fleet's Enema 133ml RECTAL PRN (06:30)
[2018-12-07 06:34] LABS: BASOPHILS % (AUTO) 0.8 % (0.0-2.0); EOSINOPHILS % (AUTO) 0.2 % (0.0-3.0); HEMATOCRIT 41.2 % (37.0-47.0); HEMOGLOBIN 13.9 G/DL (12.0-16.0); LYMPHOCYTES % (AUTO) 8.9 % (20.0-45.0); MEAN CORPUSCULAR VOLUME 98 FL (80-99); MONOCYTES % (AUTO) 6.3 % (1.0-10.0); NEUTROPHILS % (AUTO) 83.8 % (45.0-75.0); PLATELET COUNT 236 K/UL (150-450); RED BLOOD COUNT 4.22 M/UL (4.20-5.40); RED CELL DISTRIBUTION WIDTH 10.9 % (11.6-14.8); WHITE BLOOD COUNT 5.8 K/UL (4.8-10.8)
[2018-12-07 06:55] LABS: ALANINE AMINOTRANSFERASE 9 U/L (12-78); ALBUMIN 3.6 G/DL (3.4-5.0); ALBUMIN/GLOBULIN RATIO 0.9 (1.0-2.7); ALKALINE PHOSPHATASE 45 U/L (46-116); ANION GAP 6 mmol/L (5-15); ASPARTATE AMINO TRANSFERASE 15 U/L (15-37); BILIRUBIN,TOTAL 0.5 MG/DL (0.2-1.0); BLOOD UREA NITROGEN 7 mg/dL (7-18); CALCIUM 11.4 MG/DL (8.5-10.1); CARBON DIOXIDE 26 MMOL/L (21-32); CHLORIDE 100 MMOL/L (98-107); CREATININE 0.7 MG/DL (0.55-1.30); PHOSPHORUS 1.4 MG/DL (2.5-4.9); POTASSIUM 4.3 MMOL/L (3.5-5.1); SODIUM 132 MMOL/L (136-145)
--- NOTE | 2018-12-07 07:14 | NUR ---
NURSE NOTES: Called and left a message with Dr. Gomez and Dr. Nguyễn regarding pts episode of emesis this AM. Dr Gomez gave orders for zofran Q6H 4mg prn. Awaiting call back for Dr. Nguyễn.
--- NOTE | 2018-12-07 07:30 | NUR ---
NURSE NOTES: Report received from HUA Woodard. Pt. AOx4. Sleeping in bed comfortably. Pain 4/10, tolerable for now, per Pt. Had an episode of vomit early in the morning. Pt. "I vomited earlier and told the RN, I don't want to eat anything right now" IV running D5 1/2 NS at 125 on L FA 22g IV. IV site intact. Bed on lowest position, side rails upx2, brakes engaged. Call light within easy reach. Family at bedside voiced concern about not seeing making rounds. Informed usually no particular time frame however rounds are done.
--- NOTE | 2018-12-07 07:30 | NUR ---
HAND-OFF: Report given to HUA Muller. Pt stable.
--- NOTE | 2018-12-07 08:45 | NUR ---
NURSE NOTES: Left a message to Dr. Gomez regarding Pt's family wanting to talk to him. Waiting for a call back.
[2018-12-07] MEDS: Heparin 5000 units/ml inj SUBQ SCH ×2 (09:00→22:16)
--- NOTE | 2018-12-07 09:16 | General Progress Note ---
Assessment/Plan Problem List: (1) Abdominal pain ICD Codes: R10.9 - Unspecified abdominal pain SNOMED: 86558785 (2) Head ache ICD Codes: R51 - Headache SNOMED: 96983819 (3) Acute exacerbation of chronic low back pain ICD Codes: M54.5 - Low back pain; G89.29 - Other chronic pain SNOMED: 686444701, 582533403 (4) Hypercalcemia ICD Codes: E83.52 - Hypercalcemia SNOMED: 64908590 (5) Diffuse leiomyomatosis of uterus ICD Codes: D39.0 - Neoplasm of uncertain behavior of uterus SNOMED: 51247528 Status: stable, progressing Assessment/Plan: diet ivf gi f/u pain control cbc bmp am Subjective Constitutional: Reports: weakness Allergies: Coded Allergies: No Known Allergies (Unverified , 12/05/18) All Systems: reviewed and negative except above Subjective calm in bed sl abd pain Objective Last 24 Hour Vital Signs Date Time Temp Pulse Resp B/P (MAP) Pulse Ox O2 Delivery O2 Flow Rate FiO2 12/07/18 04:00 85 12/07/18 04:00 88 106/67 (80) 98 12/07/18 02:47 88 106/67 (80) 98 12/07/18 00:00 77 12/06/18 21:00 Room Air 12/06/18 20:00 86 12/06/18 20:00 89 113/78 (90) 99 12/06/18 16:00 72 12/06/18 12:00 68 12/06/18 12:00 97.4 60 20 118/96 (103) 100 12/06/18 11:27 97.4 Intake and Output 12/06/18 12/07/18 19:00 07:00 Intake Total 515 ml Balance 515 ml Intake Oral 140 ml IV Total 375 ml # Voids 3 3 Laboratory Tests 12/07/18 05:55: White Blood Count 5.8, Red Blood Count 4.22, Hemoglobin 13.9, Hematocrit 41.2, Mean Corpuscular Volume 98, Mean Corpuscular Hemoglobin 32.8H, Mean Corpuscular Hemoglobin Concent 33.7, Red Cell Distribution Width 10.9L, Platelet Count 236, Mean Platelet Volume 6.4L, Neutrophils (%) (Auto) 83.8H, Lymphocytes (%) (Auto) 8.9L, Monocytes (%) (Auto) 6.3, Eosinophils (%) (Auto) 0.2, Basophils (%) (Auto ) 0.8, Sodium Level 132L, Potassium Level 4.3, Chloride Level 100, Carbon Dioxide Level 26, Anion Gap 6, Blood Urea Nitrogen 7, Creatinine 0.7, Estimat Glomerular Filtration Rate > 60, Glucose Level 92, Uric Acid 2.7, Calcium Level 11.4H, Phosphorus Level 1.4L, Magnesium Level 1.7L, Total Bilirubin 0.5, Aspartate Amino Transf (AST/SGOT) 15, Alanine Aminotransferase (ALT/SGPT) 9L, Alkaline Phosphatase 45L, Total Protein 7.7, Albumin 3.6, Globulin 4.1, Albumin/ Globulin Ratio 0.9L, Vitamin D 25-Hydroxy [Pending], 25-Hydroxy Vitamin D2 [ Pending], 25-Hydroxy Vitamin D3 [Pending] Height (Feet): 5 Weight (Pounds): 120 General Appearance: alert EENT: normal ENT inspection Neck: normal alignment Cardiovascular: normal peripheral pulses, normal rate, regular rhythm Respiratory/Chest: chest wall non-tender, lungs clear, normal breath sounds Abdomen: normal bowel sounds, non tender, soft Extremities: normal inspection Edema: no edema noted Arm (L), no edema noted Arm (R), no edema noted Leg (L), no edema noted Leg (R), no edema noted Pedal (L), no edema noted Pedal (R), no edema noted Generalized Neurologic: responsive, motor weakness Skin: normal pigmentation, warm/dry Lc Gomez DO Dec 07, 2018 09:16
--- NOTE | 2018-12-07 09:17 | Consultation ---
History of Present Illness General Chief Complaint: Nausea Reason for Consultation: Abd pain Present Illness Allergies: Coded Allergies: No Known Allergies (Unverified , 12/05/18) Medication History Scheduled No Known Medications* (NKM - No Known Medications*), 0 ., (Reported) Patient History Healthcare decision maker Resuscitation status Full Code Advanced Directive on File No Physical Exam Last 24 Hour Vital Signs Date Time Temp Pulse Resp B/P (MAP) Pulse Ox O2 Delivery O2 Flow Rate FiO2 12/07/18 04:00 85 12/07/18 04:00 88 106/67 (80) 98 12/07/18 02:47 88 106/67 (80) 98 12/07/18 00:00 77 12/06/18 21:00 Room Air 12/06/18 20:00 86 12/06/18 20:00 89 113/78 (90) 99 12/06/18 16:00 72 12/06/18 12:00 68 12/06/18 12:00 97.4 60 20 118/96 (103) 100 12/06/18 11:27 97.4 Intake and Output 12/06/18 12/07/18 19:00 07:00 Intake Total 515 ml Balance 515 ml Intake Oral 140 ml IV Total 375 ml # Voids 3 3 Laboratory Tests Test 12/07/18 05:55 White Blood Count 5.8 K/UL (4.8-10.8) Red Blood Count 4.22 M/UL (4.20-5.40) Hemoglobin 13.9 G/DL (12.0-16.0) Hematocrit 41.2 % (37.0-47.0) Mean Corpuscular Volume 98 FL (80-99) Mean Corpuscular Hemoglobin 32.8 PG (27.0-31.0) H Mean Corpuscular Hemoglobin Concent 33.7 G/DL (32.0-36.0) Red Cell Distribution Width 10.9 % (11.6-14.8) L Platelet Count 236 K/UL (150-450) Mean Platelet Volume 6.4 FL (6.5-10.1) L Neutrophils (%) (Auto) 83.8 % (45.0-75.0) H Lymphocytes (%) (Auto) 8.9 % (20.0-45.0) L Monocytes (%) (Auto) 6.3 % (1.0-10.0) Eosinophils (%) (Auto) 0.2 % (0.0-3.0) Basophils (%) (Auto) 0.8 % (0.0-2.0) Sodium Level 132 MMOL/L (136-145) L Potassium Level 4.3 MMOL/L (3.5-5.1) Chloride Level 100 MMOL/L (98-107) Carbon Dioxide Level 26 MMOL/L (21-32) Anion Gap 6 mmol/L (5-15) Blood Urea Nitrogen 7 mg/dL (7-18) Creatinine 0.7 MG/DL (0.55-1.30) Estimat Glomerular Filtration Rate > 60 mL/min (>60) Glucose Level 92 MG/DL (74-106) Uric Acid 2.7 MG/DL (2.6-7.2) Calcium Level 11.4 MG/DL (8.5-10.1) H Phosphorus Level 1.4 MG/DL (2.5-4.9) L Magnesium Level 1.7 MG/DL (1.8-2.4) L Total Bilirubin 0.5 MG/DL (0.2-1.0) Aspartate Amino Transf (AST/SGOT) 15 U/L (15-37) Alanine Aminotransferase (ALT/SGPT) 9 U/L (12-78) L Alkaline Phosphatase 45 U/L (46-116) L Total Protein 7.7 G/DL (6.4-8.2) Albumin 3.6 G/DL (3.4-5.0) Globulin 4.1 g/dL Albumin/Globulin Ratio 0.9 (1.0-2.7) L Vitamin D 25-Hydroxy Pending 25-Hydroxy Vitamin D2 Pending 25-Hydroxy Vitamin D3 Pending Height (Feet): 5 Weight (Pounds): 120 Medications Current Medications Medications (Trade) Dose Ordered Sig/Oral Route PRN Reason Start Time Stop Time Status Last Admin Dose Admin Acetaminophen (Tylenol) 650 mg Q4H PRN ORAL fever (temp>100.5F) 12/05/18 19:45 01/04/19 19:44 12/07/18 06:31 Bisacodyl (Dulcolax) 10 mg BID PRN RECTAL Constipation 12/07/18 06:30 01/06/19 06:29 Calcitonin [place] (Miacalcin) 1 sprays DAILY NASAL 12/06/18 09:00 01/05/19 08:59 12/06/18 09:59 Clonidine HCl (Catapres Tab) 0.1 mg Q4H PRN ORAL bp 165 syst 12/05/18 22:30 01/04/19 22:29 Dextrose (Dextrose 50%) 25 ml Q30M PRN IV Hypoglycemia 12/05/18 19:45 01/04/19 19:44 Dextrose (Dextrose 50%) 50 ml Q30M PRN IV Hypoglycemia 12/05/18 19:45 01/04/19 19:44 Dextrose/Sodium Chloride 1,000 ml @ 125 mls/hr Q8H IV 12/06/18 10:23 01/05/19 10:22 12/07/18 06:32 Docusate Sodium (Colace) 100 mg TID ORAL 12/06/18 18:00 01/05/19 08:59 12/06/18 17:31 Heparin Sodium (Porcine) (Heparin 5000 units/ml) 5,000 units EVERY 12 HOURS SUBQ 12/05/18 21:00 01/04/19 20:59 12/06/18 09:05 Lorazepam (Ativan 2mg/ml 1ml) 1 mg Q4H PRN IV agitation 12/05/18 19:45 12/12/18 19:44 Magnesium Sulfate 100 ml @ 100 mls/hr Q1H IVPB 12/07/18 09:30 12/07/18 13:29 Metoclopramide HCl (Reglan) 10 mg Q6H PRN IVP severe nausea 12/05/18 19:45 01/04/19 19:44 12/06/18 10:56 Morphine Sulfate (Morphine Sulfate) 2 mg Q4H PRN IVP severe Pain (Pain Scale 7-10) 12/05/18 19:45 12/12/18 19:44 12/07/18 07:20 Nitroglycerin (Ntg) 0.4 mg Q5M X 3 DOSES PRN SL Prn Chest Pain 12/05/18 19:45 01/04/19 19:44 Ondansetron HCl (Zofran) 4 mg Q6H PRN IVP Nausea & Vomiting 12/07/18 07:15 01/06/19 07:14 12/07/18 07:19 Pantoprazole (Protonix) 40 mg Q12HR ORAL 12/06/18 21:00 01/05/19 06:29 12/06/18 21:32 Polyethylene Glycol (Miralax) 17 gm HSPRN PRN ORAL Constipation 12/05/18 19:45 01/04/19 19:44 12/06/18 17:40 Potassium Phosphate 30 mm/ Sodium Chloride 285 ml @ 47.5 mls/hr ONCE ONCE IV 12/07/18 10:30 12/07/18 16:29 Promethazine HCl 25 mg/Sodium Chloride 56 ml @ 110 mls/hr Q6H PRN IV Refractory N/V 12/05/18 19:45 01/04/19 19:44 Sodium Phosphate (Fleet's Sodium Phosl Enema) 133 ml BID PRN RECTAL for constipation 12/07/18 06:30 01/06/19 06:29 Temazepam (Restoril) 15 mg HSPRN PRN ORAL Insomnia 12/05/18 19:45 12/12/18 19:44 Assessment/Plan Assessment/Plan: Hematology Consult DOS: 12/07/18 ALEJANDRA MD: Wally Gomez RFC: Hypercalcemia HPI 38-year-old female with no significant past medical history here complaining of 4 days of acute onset of left lower quadrant abdominal pain and multiple bouts of nonbloody emesis. Patient does not recall whether it started after eating certain food denying eating anything greasy, acidic, spicy. Denies alcohol intake, smoking tobacco, or any drug use. Patient complains of constipation and reports that the last time she made a bowel movement and was in shapes of pallets however denies any blood in her stool. Denies fever and chills, chest pain, shortness of breath, palpitation, dizziness and headache. Patient last menstrual. Was 3 weeks ago and reports that she did a test at home was negative. Denies vaginal discharge, bleeding, hematuria, urinary symptoms. She further complains of new onset of 10 out of 10 headache that started today without radiation. Also reports that for a few weeks she has been having 5 out of 10 pain without any injury in both eyes and generalized weakness. Noted to have a high Ca++ and heme was consulted. Allergies: No Known Allergies (Unverified , 12/05/18) Patient History Past Medical History: see triage record Past Surgical History: unable to obtain Pertinent Family History: none Last Menstrual Period: 11/17/18 Now: No Immunizations: UTD Nursing Documentation-PMH Past Medical History: No History, Except For Review of Systems Negative except as in hpi Physical Exam Vitals: reviewed, normal Gen: normal inspection, well appearing, no apparent distress, alert, GCS 15 Head: normocephalic, atraumatic HEENT: ncat Respiratory: normal inspection, chest non-tender, normal breath sounds, no rhonchi, no retraction, no wheezing CV: rrr, no mgr GI: non tender, soft, no mass, no pulsatile mass, guarding - LLQ, other -- McBurney's and Rovsing's : no CVA tenderness Musculoskeletal: normal inspection Neurologic: normal inspection, alert, oriented x3, responsive Psychiatric: normal inspection Skin: no rash, palpation normal Lymphatic: normal inspection Labs: noted Imaging: noted Assessment and Recs # Symptomatic hypercalcemia, unknown origin at this time --> most likely being common, obtain pth, r/o hyperparathyroidism --> obtain spep electrophoresis results --> obtain us thyroid r/o parathyroid hyperplasia --> fluid rehydration --> renal eval appreciated --> calcitonin given # Diffuse leiomyomatosis of uterus --> uterine fibroid noted # Abd pain with nonbloody emesis. --> as per gi recs --> stool softeners, colace, senna --> NS bolus, Zofran, Reglan # Electrolyte abnml --> replete as needed prn DW FAMILY, mom, Dr. Wally Gomez Greatly appreciate consultation! Bertrand Collazo MD Dec 07, 2018 09:17
[2018-12-07] MEDS: Docusate 100mg cap ORAL SCH ×3 (09:32→18:53)
[2018-12-07] MEDS ORDERED: Potassium Phosphate 30 MM in NS 275 ML IV ONE (10:30)
--- NOTE | 2018-12-07 11:04 | NUR ---
CASE MANAGEMENT:REVIEW 38 YR OLD FEMALE TO OUR ER CC: ABDOMINAL PAIN,NAUSEA,VOMITING AND CONSTIPATION X4 DAYS SI: HYPERCALCEMIA 98.4 106 16 150/109 99% ON RA CA-14.6 URINE(+) THC IS: IV ZOFRAN IV PHENERGAN 1L NS BOLUS IV AREDIA IV LASIX CT HEAD : TO TELEMETRY 12/07/18 SI: HYPERCALCEMIA DIFFUSE LEIOMYOMATOSIS OF UTERUS. ABDOMINAL PAIN 98.3 92 18 112/84 100% ON RA CA-13.2 IS: IV K-PHOS X1 IV MAG SULFATE Q1HRS X4 BAGS PROTONIX PO Q12 IVF@125/HR CALCITONIN NASAL QD : TELEMETRY STATUS DCP: FROM HOME
--- NOTE | 2018-12-07 11:10 | Nephrology Progress Note ---
Assessment/Plan Problem List: (1) Hypercalcemia (2) Diffuse leiomyomatosis of uterus (3) Electrolyte abnormality Plan Hydrate- change IV to isotonic Nasal Calcitonin One dose Aredia 12/06/18 Lasix PRN PTH level and Vit D level pending Objective Objective Last 24 Hour Vital Signs Date Time Temp Pulse Resp B/P (MAP) Pulse Ox O2 Delivery O2 Flow Rate FiO2 12/07/18 09:00 Room Air 12/07/18 08:00 81 12/07/18 08:00 98.3 92 18 112/84 (93) 100 12/07/18 04:00 85 12/07/18 04:00 88 106/67 (80) 98 12/07/18 02:47 88 106/67 (80) 98 12/07/18 00:00 77 12/06/18 21:00 Room Air 12/06/18 20:00 86 12/06/18 20:00 89 113/78 (90) 99 12/06/18 16:00 72 12/06/18 12:00 68 12/06/18 12:00 97.4 60 20 118/96 (103) 100 12/06/18 11:27 97.4 Intake and Output 12/06/18 12/07/18 19:00 07:00 Intake Total 515 ml Balance 515 ml Intake Oral 140 ml IV Total 375 ml # Voids 3 3 Laboratory Tests 12/07/18 05:55: White Blood Count 5.8, Red Blood Count 4.22, Hemoglobin 13.9, Hematocrit 41.2, Mean Corpuscular Volume 98, Mean Corpuscular Hemoglobin 32.8H, Mean Corpuscular Hemoglobin Concent 33.7, Red Cell Distribution Width 10.9L, Platelet Count 236, Mean Platelet Volume 6.4L, Neutrophils (%) (Auto) 83.8H, Lymphocytes (%) (Auto) 8.9L, Monocytes (%) (Auto) 6.3, Eosinophils (%) (Auto) 0.2, Basophils (%) (Auto ) 0.8, Sodium Level 132L, Potassium Level 4.3, Chloride Level 100, Carbon Dioxide Level 26, Anion Gap 6, Blood Urea Nitrogen 7, Creatinine 0.7, Estimat Glomerular Filtration Rate > 60, Glucose Level 92, Uric Acid 2.7, Calcium Level 11.4H, Phosphorus Level 1.4L, Magnesium Level 1.7L, Total Bilirubin 0.5, Aspartate Amino Transf (AST/SGOT) 15, Alanine Aminotransferase (ALT/SGPT) 9L, Alkaline Phosphatase 45L, Total Protein 7.7, Total Protein (PEP) [Pending], Albumin 3.6, Albumin (PEP) [Pending], Globulin 4.1, Globulin (PEP) [Pending], Albumin/Globulin Ratio [Pending], Acffl-9-Sazeurrpk [Pending], Alpha-2- Globulins [Pending], Beta Globulins [Pending], Beta Gamma Globulin [Pending], PEP Abnormal Protein Bands [Pending], Protein Electrophoresis Interpret [Pending ], Vitamin D 25-Hydroxy [Pending], 25-Hydroxy Vitamin D2 [Pending], 25-Hydroxy Vitamin D3 [Pending] Height (Feet): 5 Weight (Pounds): 120 Alfredo Charles MD Dec 07, 2018 11:09
--- NOTE | 2018-12-07 11:43 | Diagnostic Imaging Report ---
Indication: Abdominal pain, nausea, vomiting Technique: Ling-scale and duplex images of the upper abdomen were obtained. Doppler interrogation of the pancreatic and hepatic vessels Comparison: Findings: Gallbladder is unremarkable, without stones, wall thickening, nor pericholecystic fluid. Sonographic Luz's sign is negative. Common bile duct measures for mm in diameter. No intrahepatic biliary ductal dilatation. Liver demonstrates normal echogenicity, no focal abnormality. Portal vein and hepatic veins are patent. Pancreas is unremarkable. Spleen is unremarkable. Left kidney measures 10.2 cm in length. Right kidney measures 10.8 cm length. Both kidneys demonstrate slightly increased echogenicity. There is no hydronephrosis. No focal abnormality . Non-aneurysmal abdominal aorta. Normal inferior vena cava . Impression: Mildly increased renal echogenicity bilaterally, could indicate medical renal disease No other acute or significant abnormality. Negative for gallstones or dilated bile ducts
--- NOTE | 2018-12-07 12:03 | NUR ---
NURSE NOTES: Pt's T 101.1, gave tylenol 650 per order. left a message to Dr. Gomez.
--- NOTE | 2018-12-07 12:05 | NUR ---
NURSE NOTES: Informed Dr. Silva regarding Pt's Temp.
--- NOTE | 2018-12-07 12:10 | Consultation ---
History of Present Illness General Date patient seen: Dec 07, 2018 Chief Complaint: Nausea Reason for Consultation: Abd pain Present Illness HPI 38-year-old female with no significant past medical history here complaining of 4 days of acute onset of left lower quadrant abdominal pain and multiple bouts of nonbloody emesis. Also reports that for a few weeks she has been having 5 out of 10 pain without any injury in both eyes and generalized weakness. she was found to have elevated Calcium and admitted for further management. Allergies: Coded Allergies: No Known Allergies (Unverified , 12/05/18) Medication History Scheduled No Known Medications* (NKM - No Known Medications*), 0 ., (Reported) Patient History Healthcare decision maker Resuscitation status Full Code Advanced Directive on File No Past Medical/Surgical History Past Medical/Surgical History: (1) Head ache Review of Systems All Other Systems: negative except mentioned in HPI Physical Exam General Appearance: WD/WN Lines, tubes and drains: peripheral HEENT: normocephalic, atraumatic Neck: non-tender, normal alignment Respiratory/Chest: chest wall non-tender, lungs clear Cardiovascular/Chest: normal peripheral pulses, normal rate Abdomen: normal bowel sounds, non tender Genitourinary/Rectal: normal rectal exam Last 24 Hour Vital Signs Date Time Temp Pulse Resp B/P (MAP) Pulse Ox O2 Delivery O2 Flow Rate FiO2 12/07/18 09:00 Room Air 12/07/18 08:00 81 12/07/18 08:00 98.3 92 18 112/84 (93) 100 12/07/18 04:00 85 12/07/18 04:00 88 106/67 (80) 98 12/07/18 02:47 88 106/67 (80) 98 12/07/18 00:00 77 12/06/18 21:00 Room Air 12/06/18 20:00 86 12/06/18 20:00 89 113/78 (90) 99 12/06/18 16:00 72 Intake and Output 12/06/18 12/07/18 18:59 06:59 Intake Total 515 ml Balance 515 ml Intake Oral 140 ml IV Total 375 ml # Voids 3 3 Laboratory Tests Test 12/07/18 05:55 White Blood Count 5.8 K/UL (4.8-10.8) Red Blood Count 4.22 M/UL (4.20-5.40) Hemoglobin 13.9 G/DL (12.0-16.0) Hematocrit 41.2 % (37.0-47.0) Mean Corpuscular Volume 98 FL (80-99) Mean Corpuscular Hemoglobin 32.8 PG (27.0-31.0) H Mean Corpuscular Hemoglobin Concent 33.7 G/DL (32.0-36.0) Red Cell Distribution Width 10.9 % (11.6-14.8) L Platelet Count 236 K/UL (150-450) Mean Platelet Volume 6.4 FL (6.5-10.1) L Neutrophils (%) (Auto) 83.8 % (45.0-75.0) H Lymphocytes (%) (Auto) 8.9 % (20.0-45.0) L Monocytes (%) (Auto) 6.3 % (1.0-10.0) Eosinophils (%) (Auto) 0.2 % (0.0-3.0) Basophils (%) (Auto) 0.8 % (0.0-2.0) Sodium Level 132 MMOL/L (136-145) L Potassium Level 4.3 MMOL/L (3.5-5.1) Chloride Level 100 MMOL/L (98-107) Carbon Dioxide Level 26 MMOL/L (21-32) Anion Gap 6 mmol/L (5-15) Blood Urea Nitrogen 7 mg/dL (7-18) Creatinine 0.7 MG/DL (0.55-1.30) Estimat Glomerular Filtration Rate > 60 mL/min (>60) Glucose Level 92 MG/DL (74-106) Uric Acid 2.7 MG/DL (2.6-7.2) Calcium Level 11.4 MG/DL (8.5-10.1) H Phosphorus Level 1.4 MG/DL (2.5-4.9) L Magnesium Level 1.7 MG/DL (1.8-2.4) L Total Bilirubin 0.5 MG/DL (0.2-1.0) Aspartate Amino Transf (AST/SGOT) 15 U/L (15-37) Alanine Aminotransferase (ALT/SGPT) 9 U/L (12-78) L Alkaline Phosphatase 45 U/L (46-116) L Total Protein 7.7 G/DL (6.4-8.2) Total Protein (PEP) Pending Albumin 3.6 G/DL (3.4-5.0) Albumin (PEP) Pending Globulin 4.1 g/dL Globulin (PEP) Pending Albumin/Globulin Ratio Pending Zpdcy-4-Mlsemqmxo Pending Detlp-5-Lbtaeslba Pending Beta Globulins Pending Beta Gamma Globulin Pending PEP Abnormal Protein Bands Pending Protein Electrophoresis Interpret Pending Vitamin D 25-Hydroxy Pending 25-Hydroxy Vitamin D2 Pending 25-Hydroxy Vitamin D3 Pending Height (Feet): 5 Weight (Pounds): 120 Medications Current Medications Medications (Trade) Dose Ordered Sig/Oral Route PRN Reason Start Time Stop Time Status Last Admin Dose Admin Acetaminophen (Tylenol) 650 mg Q4H PRN ORAL fever (temp>100.5F) 12/05/18 19:45 01/04/19 19:44 12/07/18 11:43 Bisacodyl (Dulcolax) 10 mg BID PRN RECTAL Constipation 12/07/18 06:30 01/06/19 06:29 Calcitonin [place] (Miacalcin) 1 sprays DAILY NASAL 12/06/18 09:00 01/05/19 08:59 12/07/18 09:33 Clonidine HCl (Catapres Tab) 0.1 mg Q4H PRN ORAL bp 165 syst 12/05/18 22:30 01/04/19 22:29 Dextrose/ Electrolytes 1,000 ml @ 125 mls/hr Q8H IV 12/07/18 12:00 01/06/19 11:59 Docusate Sodium (Colace) 100 mg TID ORAL 12/06/18 18:00 01/05/19 08:59 12/07/18 09:32 Furosemide (Lasix) 20 mg ONCE IV 12/07/18 11:30 12/07/18 13:00 12/07/18 12:01 Heparin Sodium (Porcine) (Heparin 5000 units/ml) 5,000 units EVERY 12 HOURS SUBQ 12/05/18 21:00 01/04/19 20:59 12/06/18 09:05 Lorazepam (Ativan 2mg/ml 1ml) 1 mg Q4H PRN IV agitation 12/05/18 19:45 12/12/18 19:44 Magnesium Sulfate 100 ml @ 100 mls/hr Q1H IVPB 12/07/18 09:30 12/07/18 13:29 12/07/18 11:44 Metoclopramide HCl (Reglan) 5 mg AC+HS ORAL 12/07/18 11:30 01/06/19 11:29 12/07/18 11:44 Morphine Sulfate (Morphine Sulfate) 2 mg Q4H PRN IVP severe Pain (Pain Scale 7-10) 12/05/18 19:45 12/12/18 19:44 12/07/18 07:20 Nitroglycerin (Ntg) 0.4 mg Q5M X 3 DOSES PRN SL Prn Chest Pain 12/05/18 19:45 01/04/19 19:44 Ondansetron HCl (Zofran) 4 mg Q6H PRN IVP Nausea & Vomiting 12/07/18 07:15 01/06/19 07:14 12/07/18 07:19 Pantoprazole (Protonix) 40 mg Q12HR ORAL 12/06/18 21:00 01/05/19 06:29 12/07/18 09:32 Potassium Phosphate 30 mm/ Sodium Chloride 285 ml @ 47.5 mls/hr ONCE ONCE IV 12/07/18 10:30 12/07/18 16:29 12/07/18 11:58 Promethazine HCl 25 mg/Sodium Chloride 56 ml @ 110 mls/hr Q6H PRN IV Refractory N/V 12/05/18 19:45 01/04/19 19:44 Sodium Phosphate (Fleet's Sodium Phosl Enema) 133 ml BID PRN RECTAL for constipation 12/07/18 06:30 01/06/19 06:29 Temazepam (Restoril) 15 mg HSPRN PRN ORAL Insomnia 12/05/18 19:45 12/12/18 19:44 Assessment/Plan Problem List: (1) Hypercalcemia ICD Codes: E83.52 - Hypercalcemia SNOMED: 45920647 (2) Electrolyte abnormality ICD Codes: E87.8 - Other disorders of electrolyte and fluid balance, not elsewhere classified SNOMED: 783387618 Assessment/Plan: rule out hyperparathyroidsm symptomatic treatment outpatient follow up once the Ca is lower. Kermit Silva MD Dec 07, 2018 12:10
--- NOTE | 2018-12-07 13:10 | NUR ---
NURSE NOTES: Left a message to Dr. Carroll's office (spoke with Mark) regarding Pt.'s Temp.
--- NOTE | 2018-12-07 17:40 | NUR ---
NURSE NOTES: Pt. wanted to try Vale for headache since she had Morphine in the morning for same issue and it didn't help. Communicated with Dr. Gomez and Dr. Silva. Waiting for an order.
--- NOTE | 2018-12-07 18:00 | Infectious Diseases Prog Note ---
Assessment/Plan Assessment/Plan Assessment/Plan: 38 yo female who presented to the ED on 12/05/18 with 4 days of abdominal pain and vomiting. Abd pain and nausea and constipation Viral gastritis vs UTI/pyelo -CT abd/p: No acute findings. Prominent uterine fibroid. -Abd US: Mildly increased renal echogenicity bilaterally, could indicate medical renal disease. No other acute or significant abnormality. Negative for gallstones or dilated bile ducts - UCx 12/05/18 - GNR; u/a 10-15, nit neg, leuk Fever No leucocytosis Symptomatic hypercalcemia PLAN: - Start empiric Cefepime pending UCx - Supportive care -Neprho, heme/onc f/u Thank you for this consult. We will continue to follow the patient during this hospitalization. Subjective Allergies: Coded Allergies: No Known Allergies (Unverified , 12/05/18) Subjective Tm 101.7 no leukocytosis Objective Vital Signs Last 24 Hour Vital Signs Date Time Temp Pulse Resp B/P (MAP) Pulse Ox O2 Delivery O2 Flow Rate FiO2 12/07/18 12:45 98.2 12/07/18 12:45 98.2 91 18 123/86 (98) 100 12/07/18 12:00 101.1 91 18 123/86 (98) 100 12/07/18 12:00 86 12/07/18 09:00 Room Air 12/07/18 08:00 81 12/07/18 08:00 98.3 92 18 112/84 (93) 100 12/07/18 04:00 85 12/07/18 04:00 88 106/67 (80) 98 12/07/18 02:47 88 106/67 (80) 98 12/07/18 00:00 77 12/06/18 21:00 Room Air 12/06/18 20:00 86 12/06/18 20:00 89 113/78 (90) 99 Height (Feet): 5 Weight (Pounds): 120 Objective General: NAD HEENT: NCAT, MMM, EOMI, PERRL, No Oral lesion, no scleral icterus NECK: full range of motion, supple, no meningismus, No LAD, No JVD LUNGS: CTAB, No W/C, No Accessory muscle use CARDS: RRR, S1, S2, No M/R/G, ABD: Soft, TTP epigastric and b/l LQ, ND, No R/G, + BS, No HSM, No Masses : Deferred Ext: C/C/E, Pulses 2+ B/L (DP, Rad): NEURO: A/O x 4, Strength and Sensation Grossly intact PSYCH: Normal mood and affect SKIN: Warm/dry, No rashes Microbiology Date/Time Source Procedure Growth Status 12/05/18 17:19 Urine,Clean Catch Urine Culture - Preliminary Gram Negative Bacillus 1 Resulted Laboratory Tests Test 12/07/18 05:55 White Blood Count 5.8 K/UL (4.8-10.8) Red Blood Count 4.22 M/UL (4.20-5.40) Hemoglobin 13.9 G/DL (12.0-16.0) Hematocrit 41.2 % (37.0-47.0) Mean Corpuscular Volume 98 FL (80-99) Mean Corpuscular Hemoglobin 32.8 PG (27.0-31.0) H Mean Corpuscular Hemoglobin Concent 33.7 G/DL (32.0-36.0) Red Cell Distribution Width 10.9 % (11.6-14.8) L Platelet Count 236 K/UL (150-450) Mean Platelet Volume 6.4 FL (6.5-10.1) L Neutrophils (%) (Auto) 83.8 % (45.0-75.0) H Lymphocytes (%) (Auto) 8.9 % (20.0-45.0) L Monocytes (%) (Auto) 6.3 % (1.0-10.0) Eosinophils (%) (Auto) 0.2 % (0.0-3.0) Basophils (%) (Auto) 0.8 % (0.0-2.0) Sodium Level 132 MMOL/L (136-145) L Potassium Level 4.3 MMOL/L (3.5-5.1) Chloride Level 100 MMOL/L (98-107) Carbon Dioxide Level 26 MMOL/L (21-32) Anion Gap 6 mmol/L (5-15) Blood Urea Nitrogen 7 mg/dL (7-18) Creatinine 0.7 MG/DL (0.55-1.30) Estimat Glomerular Filtration Rate > 60 mL/min (>60) Glucose Level 92 MG/DL (74-106) Uric Acid 2.7 MG/DL (2.6-7.2) Calcium Level 11.4 MG/DL (8.5-10.1) H Phosphorus Level 1.4 MG/DL (2.5-4.9) L Magnesium Level 1.7 MG/DL (1.8-2.4) L Total Bilirubin 0.5 MG/DL (0.2-1.0) Aspartate Amino Transf (AST/SGOT) 15 U/L (15-37) Alanine Aminotransferase (ALT/SGPT) 9 U/L (12-78) L Alkaline Phosphatase 45 U/L (46-116) L Total Protein 7.7 G/DL (6.4-8.2) Total Protein (PEP) Pending Albumin 3.6 G/DL (3.4-5.0) Albumin (PEP) Pending Globulin 4.1 g/dL Globulin (PEP) Pending Albumin/Globulin Ratio Pending Qxkht-1-Chrvvzzsf Pending Lzvme-6-Zoszhlwem Pending Beta Globulins Pending Beta Gamma Globulin Pending PEP Abnormal Protein Bands Pending Protein Electrophoresis Interpret Pending Vitamin D 25-Hydroxy Pending 25-Hydroxy Vitamin D2 Pending 25-Hydroxy Vitamin D3 Pending Current Medications Medications (Trade) Dose Ordered Sig/Oral Route PRN Reason Start Time Stop Time Status Last Admin Dose Admin Acetaminophen (Tylenol) 650 mg Q4H PRN ORAL fever (temp>100.5F) 12/05/18 19:45 01/04/19 19:44 12/07/18 11:43 Bisacodyl (Dulcolax) 10 mg BID PRN RECTAL Constipation 12/07/18 06:30 01/06/19 06:29 Calcitonin [place] (Miacalcin) 1 sprays DAILY NASAL 12/06/18 09:00 01/05/19 08:59 12/07/18 09:33 Clonidine HCl (Catapres Tab) 0.1 mg Q4H PRN ORAL bp 165 syst 12/05/18 22:30 01/04/19 22:29 Dextrose/ Electrolytes 1,000 ml @ 125 mls/hr Q8H IV 12/07/18 12:00 01/06/19 11:59 12/07/18 14:42 Docusate Sodium (Colace) 100 mg TID ORAL 12/06/18 18:00 01/05/19 08:59 12/07/18 12:49 Heparin Sodium (Porcine) (Heparin 5000 units/ml) 5,000 units EVERY 12 HOURS SUBQ 12/05/18 21:00 01/04/19 20:59 12/06/18 09:05 Lorazepam (Ativan 2mg/ml 1ml) 1 mg Q4H PRN IV agitation 12/05/18 19:45 12/12/18 19:44 Metoclopramide HCl (Reglan) 5 mg AC+HS ORAL 12/07/18 11:30 01/06/19 11:29 12/07/18 17:06 Morphine Sulfate (Morphine Sulfate) 2 mg Q4H PRN IVP severe Pain (Pain Scale 7-10) 12/05/18 19:45 12/12/18 19:44 12/07/18 07:20 Nitroglycerin (Ntg) 0.4 mg Q5M X 3 DOSES PRN SL Prn Chest Pain 12/05/18 19:45 01/04/19 19:44 Ondansetron HCl (Zofran) 4 mg Q6H PRN IVP Nausea & Vomiting 12/07/18 07:15 01/06/19 07:14 12/07/18 07:19 Pantoprazole (Protonix) 40 mg Q12HR ORAL 12/06/18 21:00 01/05/19 06:29 12/07/18 09:32 Promethazine HCl 25 mg/Sodium Chloride 56 ml @ 110 mls/hr Q6H PRN IV Refractory N/V 12/05/18 19:45 01/04/19 19:44 Sodium Phosphate (Fleet's Sodium Phosl Enema) 133 ml BID PRN RECTAL for constipation 12/07/18 06:30 01/06/19 06:29 Temazepam (Restoril) 15 mg HSPRN PRN ORAL Insomnia 12/05/18 19:45 12/12/18 19:44 Noemi De Dios M.D. Dec 07, 2018 18:00
--- NOTE | 2018-12-07 19:50 | NUR ---
HAND-OFF: Report given to HUA eMi.
--- NOTE | 2018-12-07 19:55 | NUR ---
NURSE NOTES: Pt. AOx4. Sitting in bed comfortably. IV running, IV site intact. Bed in lowest position, side rails upx2, locked. Call light within easy reach. Family at bedside. Will continue to monitor.
[2018-12-07] MEDS ORDERED: Cefepime HCl 1 GM in D5W 55 ML IVPB SCH (20:00)
--- NOTE | 2018-12-07 23:35 | NUR ---
HAND-OFF: Report given to [facility]. Pt transferred in stable condition to [facility]. All belongings accounted for and with patient.
--- NOTE | 2018-12-07 23:40 | NUR ---
NURSE NOTES: Pt transfers from 2E via bed. Alert and awake. No acute distress noted. No chilling or febrile sense noted. Done checking belongings. Given orientation. Leave call light within reach. Receive a report from HUA Mei. Will continue to monitor.
[2018-12-07] MEDS ORDERED: Morphine Sulfate 2mg/ml Inj(IV/IM USE ONLY) IVP PRN (23:45)
[2018-12-07] MEDS ORDERED: Nitroglycerin Subl 0.4mg tab SL PRN (23:45)
[2018-12-07] MEDS ORDERED: LORazepam Inj 2mg/ml 1ml IV PRN (23:45)
[2018-12-08] VITALS: BP 130/88
--- NOTE | 2018-12-08 00:30 | NUR ---
NURSE NOTES: Breathing is even and non labored. Abdominal pain 4/10 and offer pain medication but refuses to take it. On IV fluid hydration on left forearm with 22 g without infiltration. Will continue to monitor.
[2018-12-08] MEDS ORDERED: Promethazine HCl 25 MG in NS 55 ML IV PRN (01:45)
[2018-12-08] MEDS: Cefepime HCl 1 GM in D5W 55 ML IVPB SCH ×2 (03:54→11:56)
[2018-12-08 04:00] VITALS: BP 115/74
--- NOTE | 2018-12-08 06:32 | NUR ---
NURSE NOTES: Pt is awake and alert. No acute distress noted. No chest pain noted. BS intact but still noted LLQ pain 4/10. Refuses to take medication. JAY on left frontal area 5/10. Pt asks for Tylenol and administer 325mg 2t po. Will continue to monitor.
[2018-12-08 07:00] LABS: BASOPHILS % (AUTO) 0.8 % (0.0-2.0); EOSINOPHILS % (AUTO) 0.2 % (0.0-3.0); HEMATOCRIT 37.6 % (37.0-47.0); HEMOGLOBIN 12.7 G/DL (12.0-16.0); LYMPHOCYTES % (AUTO) 11.2 % (20.0-45.0); MEAN CORPUSCULAR VOLUME 96 FL (80-99); MONOCYTES % (AUTO) 11.7 % (1.0-10.0); NEUTROPHILS % (AUTO) 76.1 % (45.0-75.0); PLATELET COUNT 213 K/UL (150-450); RED BLOOD COUNT 3.91 M/UL (4.20-5.40); RED CELL DISTRIBUTION WIDTH 10.8 % (11.6-14.8); WHITE BLOOD COUNT 3.7 K/UL (4.8-10.8)
[2018-12-08 07:29] LABS: ALANINE AMINOTRANSFERASE 13 U/L (12-78); ALBUMIN 3.2 G/DL (3.4-5.0); ALBUMIN/GLOBULIN RATIO 0.9 (1.0-2.7); ALKALINE PHOSPHATASE 38 U/L (46-116); ANION GAP 9 mmol/L (5-15); ASPARTATE AMINO TRANSFERASE 17 U/L (15-37); BILIRUBIN,TOTAL 0.2 MG/DL (0.2-1.0); BLOOD UREA NITROGEN 6 mg/dL (7-18); CARBON DIOXIDE 24 MMOL/L (21-32); CHLORIDE 102 MMOL/L (98-107); PHOSPHORUS 1.6 MG/DL (2.5-4.9); POTASSIUM 3.6 MMOL/L (3.5-5.1); SODIUM 135 MMOL/L (136-145)
--- NOTE | 2018-12-08 07:47 | NUR ---
HAND-OFF: Report given to HUA Whaley. Done round.
--- NOTE | 2018-12-08 07:50 | NUR ---
NURSE NOTES: Patient is in bed awake and able to verbalize needs. Stable. Denies pain or SOB. Patient encouraged to use call light for assistance, verbalized understanding. Patient is in bed in locked and lowest position with call light within reach. WIll continue to monitor.
[2018-12-08 08:00] VITALS: BP 109/72
[2018-12-08 08:01] LABS: CREATININE 0.8 MG/DL (0.55-1.30)
--- NOTE | 2018-12-08 08:45 | Hematology/Onc Progress Note ---
Assessment/Plan Assessment/Plan Assessment and Recs # Symptomatic hypercalcemia, unknown origin at this time --> most likely being common, obtain pth, r/o hyperparathyroidism (STILL PENDING ) --> obtain spep electrophoresis results --> obtain us thyroid r/o parathyroid hyperplasia --> fluid rehydration --> renal eval appreciated --> calcitonin given --> trend 15-->13-->11-->9 # Diffuse leiomyomatosis of uterus --> uterine fibroid noted # Abd pain with nonbloody emesis --> as per gi recs --> stool softeners, colace, senna --> NS bolus, Zofran, Reglan # Electrolyte abnml --> replete as needed prn --> per renal Greatly appreciate consultation! Subjective Constitutional: Denies: no symptoms, chills, fever, malaise, weakness, other HEENT: Denies: no symptoms, eye pain, blurred vision, tearing, double vision, ear pain, ear discharge, nose pain, nose congestion, throat pain, throat swelling, mouth pain, mouth swelling, other Cardiovascular: Denies: no symptoms, chest pain, edema, irregular heart rate, lightheadedness, palpitations, syncope, other Respiratory: Denies: no symptoms, cough, shortness of breath, SOB with excertion, SOB at rest, sputum, wheezing, other Gastrointestinal/Abdominal: Denies: no symptoms, abdomen distended, abdominal pain, black stools, tarry stools, blood in stool, constipated, diarrhea, difficulty swallowing, nausea, poor appetite, poor fluid intake, rectal bleeding , vomiting, other Genitourinary: Denies: no symptoms, burning, discharge, frequency, flank pain, hematuria, incontinence, pain, urgency, other Neurologic/Psychiatric: Denies: no symptoms, anxiety, depressed, emotional problems, headache, numbness, paresthesia, pre-existing deficit, seizure, tingling, tremors, weakness, other Endocrine: Denies: no symptoms, excessive sweating, flushing, intolerance to cold, intolerance to heat, increased hunger, increased thirst, increased urine, unexplained weight gain, unexplained weight loss, other Hematologic/Lymphatic: Denies: no symptoms, anemia, easy bleeding, easy bruising, adenopathy, other Allergies: Coded Allergies: No Known Allergies (Unverified , 12/05/18) Subjective 12/08: no events noted, wbc is somewhat lower, on abx, wants to go home Objective Objective Current Medications Medications (Trade) Dose Ordered Sig/Oral Route PRN Reason Start Time Stop Time Status Last Admin Dose Admin Acetaminophen (Tylenol) 650 mg Q4H PRN ORAL fever (temp>100.5F) 12/07/18 23:45 01/04/19 19:44 12/08/18 06:32 Bisacodyl (Dulcolax) 10 mg BID PRN RECTAL Constipation 12/08/18 09:00 01/06/19 06:29 Calcitonin Mclean (Miacalcin) 1 sprays DAILY NASAL 12/08/18 09:00 01/05/19 08:59 Cefepime HCl 1 gm/ Dextrose 55 ml @ 110 mls/hr Q8H IVPB 12/08/18 04:00 12/14/18 19:59 12/08/18 03:54 Clonidine HCl (Catapres Tab) 0.1 mg Q4H PRN ORAL bp 165 syst 12/08/18 02:30 01/04/19 22:29 Dextrose/ Electrolytes 1,000 ml @ 125 mls/hr Q8H IV 12/07/18 23:45 01/06/19 11:59 12/08/18 03:55 Docusate Sodium (Colace) 100 mg TID ORAL 12/08/18 09:00 01/05/19 08:59 Heparin Sodium (Porcine) (Heparin 5000 units/ml) 5,000 units EVERY 12 HOURS SUBQ 12/08/18 09:00 01/04/19 20:59 Lorazepam (Ativan 2mg/ml 1ml) 1 mg Q4H PRN IV agitation 12/07/18 23:45 12/12/18 19:44 Metoclopramide HCl (Reglan) 5 mg AC+HS ORAL 12/08/18 06:30 01/06/19 11:29 12/08/18 06:16 Morphine Sulfate (Morphine Sulfate) 2 mg Q4H PRN IVP severe Pain (Pain Scale 7-10) 12/07/18 23:45 12/12/18 19:44 Nitroglycerin (Ntg) 0.4 mg Q5M X 3 DOSES PRN SL Prn Chest Pain 12/07/18 23:45 01/04/19 19:44 Ondansetron HCl (Zofran) 4 mg Q6H PRN IVP Nausea & Vomiting 12/08/18 01:15 01/06/19 07:14 Pantoprazole (Protonix) 40 mg Q12HR ORAL 12/08/18 09:00 01/05/19 06:29 Promethazine HCl 25 mg/Sodium Chloride 56 ml @ 110 mls/hr Q6H PRN IV Refractory N/V 12/08/18 01:45 01/04/19 19:44 Sodium Phosphate (Fleet's Sodium Phosl Enema) 133 ml BID PRN RECTAL for constipation 12/08/18 09:00 01/06/19 06:29 Temazepam (Restoril) 15 mg HSPRN PRN ORAL Insomnia 12/08/18 19:45 12/12/18 19:44 Last 24 Hour Vital Signs Date Time Temp Pulse Resp B/P (MAP) Pulse Ox O2 Delivery O2 Flow Rate FiO2 12/08/18 04:00 99.4 86 18 115/74 (88) 100 12/08/18 00:00 98.0 90 18 130/88 (102) 99 12/07/18 21:00 Room Air 12/07/18 20:00 99.7 95 16 117/83 (94) 100 12/07/18 19:26 99.7 12/07/18 16:00 93 12/07/18 16:00 99.1 87 20 119/82 (94) 100 12/07/18 12:45 98.2 91 18 123/86 (98) 100 12/07/18 12:00 101.1 91 18 123/86 (98) 100 12/07/18 12:00 86 12/07/18 09:00 Room Air 12/07/18 08:00 81 12/07/18 08:00 98.3 92 18 112/84 (93) 100 12/07/18 04:00 85 12/07/18 04:00 88 106/67 (80) 98 12/07/18 02:47 88 106/67 (80) 98 12/07/18 00:00 77 12/06/18 21:00 Room Air 12/06/18 20:00 86 12/06/18 20:00 89 113/78 (90) 99 12/06/18 16:00 72 12/06/18 12:00 68 12/06/18 12:00 97.4 60 20 118/96 (103) 100 12/06/18 11:27 97.4 12/06/18 09:00 Room Air Intake and Output 12/07/18 12/08/18 19:00 07:00 Intake Total 360 ml 1115 ml Balance 360 ml 1115 ml Intake Oral 360 ml 240 ml IV Total 875 ml # Voids 2 2 Labs Test 12/05/18 17:10 12/05/18 17:19 12/06/18 07:37 12/07/18 05:55 White Blood Count 7.4 K/UL (4.8-10.8) 5.3 K/UL (4.8-10.8) 5.8 K/UL (4.8-10.8) Red Blood Count 4.61 M/UL (4.20-5.40) 3.98 M/UL (4.20-5.40) 4.22 M/UL (4.20-5.40) Hemoglobin 15.0 G/DL (12.0-16.0) 13.2 G/DL (12.0-16.0) 13.9 G/DL (12.0-16.0) Hematocrit 45.4 % (37.0-47.0) 39.3 % (37.0-47.0) 41.2 % (37.0-47.0) Mean Corpuscular Volume 98 FL (80-99) 99 FL (80-99) 98 FL (80-99) Mean Corpuscular Hemoglobin 32.5 PG (27.0-31.0) 33.1 PG (27.0-31.0) 32.8 PG (27.0-31.0) Mean Corpuscular Hemoglobin Concent 33.0 G/DL (32.0-36.0) 33.6 G/DL (32.0-36.0) 33.7 G/DL (32.0-36.0) Red Cell Distribution Width 11.2 % (11.6-14.8) 11.4 % (11.6-14.8) 10.9 % (11.6-14.8) Platelet Count 310 K/UL (150-450) 268 K/UL (150-450) 236 K/UL (150-450) Mean Platelet Volume 6.6 FL (6.5-10.1) 6.8 FL (6.5-10.1) 6.4 FL (6.5-10.1) Neutrophils (%) (Auto) 77.2 % (45.0-75.0) 67.3 % (45.0-75.0) 83.8 % (45.0-75.0) Lymphocytes (%) (Auto) 14.0 % (20.0-45.0) 22.4 % (20.0-45.0) 8.9 % (20.0-45.0) Monocytes (%) (Auto) 6.6 % (1.0-10.0) 9.1 % (1.0-10.0) 6.3 % (1.0-10.0) Eosinophils (%) (Auto) 0.0 % (0.0-3.0) 0.3 % (0.0-3.0) 0.2 % (0.0-3.0) Basophils (%) (Auto) 2.1 % (0.0-2.0) 0.9 % (0.0-2.0) 0.8 % (0.0-2.0) Prothrombin Time 10.0 SEC (9.30-11.50) Prothromb Time International Ratio 0.9 (0.9-1.1) Activated Partial Thromboplast Time 32 SEC (23-33) 35 SEC (23-33) Sodium Level 136 MMOL/L (136-145) 139 MMOL/L (136-145) 132 MMOL/L (136-145) Potassium Level 4.7 MMOL/L (3.5-5.1) 4.6 MMOL/L (3.5-5.1) 4.3 MMOL/L (3.5-5.1) Chloride Level 100 MMOL/L (98-107) 106 MMOL/L (98-107) 100 MMOL/L (98-107) Carbon Dioxide Level 28 MMOL/L (21-32) 25 MMOL/L (21-32) 26 MMOL/L (21-32) Anion Gap 8 mmol/L (5-15) 8 mmol/L (5-15) 6 mmol/L (5-15) Blood Urea Nitrogen 9 mg/dL (7-18) 8 mg/dL (7-18) 7 mg/dL (7-18) Creatinine 0.9 MG/DL (0.55-1.30) 0.9 MG/DL (0.55-1.30) 0.7 MG/DL (0.55-1.30) Estimat Glomerular Filtration Rate > 60 mL/min (>60) > 60 mL/min (>60) > 60 mL/min (>60) Glucose Level 123 MG/DL (74-106) 116 MG/DL (74-106) 92 MG/DL (74-106) Calcium Level 14.6 MG/DL (8.5-10.1) 13.2 MG/DL (8.5-10.1) 11.4 MG/DL (8.5-10.1) Total Bilirubin 0.6 MG/DL (0.2-1.0) 0.5 MG/DL (0.2-1.0) 0.5 MG/DL (0.2-1.0) Aspartate Amino Transf (AST/SGOT) 13 U/L (15-37) 11 U/L (15-37) 15 U/L (15-37) Alanine Aminotransferase (ALT/SGPT) 14 U/L (12-78) 9 U/L (12-78) 9 U/L (12-78) Alkaline Phosphatase 55 U/L (46-116) 46 U/L (46-116) 45 U/L (46-116) Creatine Kinase MB < 0.5 NG/ML (0.0-3.6) Troponin I 0.004 ng/mL (0.000-0.056) Total Protein 8.9 G/DL (6.4-8.2) 7.7 G/DL (6.4-8.2) 7.7 G/DL (6.4-8.2) Albumin 4.5 G/DL (3.4-5.0) 3.4 G/DL (3.4-5.0) 3.6 G/DL (3.4-5.0) Globulin 4.4 g/dL 4.3 g/dL 4.1 g/dL Albumin/Globulin Ratio 1.0 (1.0-2.7) 0.8 (1.0-2.7) 0.9 (1.0-2.7) Lipase 57 U/L (73-393) 66 U/L (73-393) Serum Alcohol < 3 mg/dL Urine Color Pale yellow Urine Appearance Clear Urine pH 5 (4.5-8.0) Urine Specific [place] 1.025 (1.005-1.035) Urine Protein 2+ (NEGATIVE) Urine Glucose (UA) Negative (NEGATIVE) Urine Ketones 4+ (NEGATIVE) Urine Blood 1+ (NEGATIVE) Urine Nitrite Negative (NEGATIVE) Urine Bilirubin Negative (NEGATIVE) Urine Urobilinogen Normal MG/DL (0.0-1.0) Urine Leukocyte Esterase 2+ (NEGATIVE) Urine RBC 2-4 /HPF (0 - 2) Urine WBC 10-15 /HPF (0 - 2) Urine Squamous Epithelial Cells Moderate /LPF (NONE/OCC) Urine Bacteria Moderate /HPF (NONE) Urine HCG, Qualitative Negative (NEGATIVE) Urine Opiates Screen Negative (NEGATIVE) Urine Barbiturates Screen Negative (NEGATIVE) Phencyclidine (PCP) Screen Negative (NEGATIVE) Urine Amphetamines Screen Negative (NEGATIVE) Urine Benzodiazepines Screen Negative (NEGATIVE) Urine Cocaine Screen Negative (NEGATIVE) Urine Marijuana (THC) Screen Positive (NEGATIVE) Hemoglobin A1c 4.8 % (4.3-6.0) Uric Acid 2.5 MG/DL (2.6-7.2) 2.7 MG/DL (2.6-7.2) Phosphorus Level 1.9 MG/DL (2.5-4.9) 1.4 MG/DL (2.5-4.9) Magnesium Level 2.0 MG/DL (1.8-2.4) 1.7 MG/DL (1.8-2.4) Gamma Glutamyl Transpeptidase 21 U/L (5-85) Total Creatine Kinase 17 U/L (26-308) C-Reactive Protein, Quantitative 1.9 mg/dL (0.00-0.90) Pro-B-Type Natriuretic Peptide 94 pg/mL (0-125) Triglycerides Level 75 MG/DL (30-150) Cholesterol Level 137 MG/DL (< 200) LDL Cholesterol 76 mg/dL (<100) HDL Cholesterol 43 MG/DL (40-60) Cholesterol/HDL Ratio 3.2 (3.3-4.4) Amylase Level 39 U/L (25-115) Thyroid Stimulating Hormone (TSH) 1.052 uiU/mL (0.358-3.740) Test 12/08/18 05:10 White Blood Count 3.7 K/UL (4.8-10.8) Red Blood Count 3.91 M/UL (4.20-5.40) Hemoglobin 12.7 G/DL (12.0-16.0) Hematocrit 37.6 % (37.0-47.0) Mean Corpuscular Volume 96 FL (80-99) Mean Corpuscular Hemoglobin 32.5 PG (27.0-31.0) Mean Corpuscular Hemoglobin Concent 33.9 G/DL (32.0-36.0) Red Cell Distribution Width 10.8 % (11.6-14.8) Platelet Count 213 K/UL (150-450) Mean Platelet Volume 6.4 FL (6.5-10.1) Neutrophils (%) (Auto) 76.1 % (45.0-75.0) Lymphocytes (%) (Auto) 11.2 % (20.0-45.0) Monocytes (%) (Auto) 11.7 % (1.0-10.0) Eosinophils (%) (Auto) 0.2 % (0.0-3.0) Basophils (%) (Auto) 0.8 % (0.0-2.0) Sodium Level 135 MMOL/L (136-145) Potassium Level 3.6 MMOL/L (3.5-5.1) Chloride Level 102 MMOL/L (98-107) Carbon Dioxide Level 24 MMOL/L (21-32) Anion Gap 9 mmol/L (5-15) Blood Urea Nitrogen 6 mg/dL (7-18) Creatinine 0.8 MG/DL (0.55-1.30) Estimat Glomerular Filtration Rate > 60 mL/min (>60) Glucose Level 107 MG/DL (74-106) Uric Acid 2.2 MG/DL (2.6-7.2) Calcium Level 9.0 MG/DL (8.5-10.1) Phosphorus Level 1.6 MG/DL (2.5-4.9) Magnesium Level 2.1 MG/DL (1.8-2.4) Total Bilirubin 0.2 MG/DL (0.2-1.0) Aspartate Amino Transf (AST/SGOT) 17 U/L (15-37) Alanine Aminotransferase (ALT/SGPT) 13 U/L (12-78) Alkaline Phosphatase 38 U/L (46-116) Total Protein 6.7 G/DL (6.4-8.2) Albumin 3.2 G/DL (3.4-5.0) Globulin 3.5 g/dL Albumin/Globulin Ratio 0.9 (1.0-2.7) Height (Feet): 5 Weight (Pounds): 120 Objective Vitals: reviewed, normal Gen: normal inspection, well appearing, no apparent distress, alert, GCS 15 Respiratory: normal inspection, chest non-tender, normal breath sounds, no rhonchi, no retraction, no wheezing CV: rrr, no mgr GI: non tender, soft, no mass, no pulsatile mass, guarding - LLQ, other -- McBurney's and Rovsing's : no CVA tenderness Neurologic: normal inspection, alert, oriented x3, responsive Skin: no rash, palpation normal Bertrand Collazo MD Dec 08, 2018 08:45
[2018-12-08] MEDS ORDERED: Fleet's Enema 133ml RECTAL PRN (09:00)
[2018-12-08] MEDS ORDERED: Heparin 5000 units/ml inj SUBQ SCH (09:00)
--- NOTE | 2018-12-08 09:10 | GI Initial Consult Note ---
History of Present Illness General Date patient seen: Dec 08, 2018 Time patient seen: 09:03 Reason for Hospitalization: Nausea Referring physician: JORGE Reason for Consultation: Abd pain Present Illness HPI 38-year-old female with no significant past medical history here complaining of 4 days of acute onset of left lower quadrant abdominal pain and multiple bouts of nonbloody emesis. Patient does not recall whether it started after eating certain food denying eating anything greasy, acidic, spicy. Denies alcohol intake, smoking tobacco, or any drug use. Patient complains of constipation and reports that the last time she made a bowel movement and was in shapes of pallets however denies any blood in her stool. Denies fever and chills, chest pain, shortness of breath, palpitation, dizziness and headache. Patient last menstrual. Was 3 weeks ago and reports that she did a test at home was negative. Denies vaginal discharge, bleeding, hematuria, urinary symptoms. She further complains of new onset of 10 out of 10 headache that started today without radiation. Also reports that for a few weeks she has been having 5 out of 10 pain without any injury in both eyes and generalized weakness. Patient is self-pay and has not been seen by any physician in over 1 year. Denies psychiatric history, intake of any medication or supplements. GI consulted for abdominal pain. Patient seen, awake alert and oriented with no active signs or symptoms of apparent distress. The patient had previous nausea and vomiting which this morning has improved. Patient denies any abdominal pain at this time, currently on a low-fat diet, tolerating. Abdominal pelvic CT was reviewed noted that there was a large mass in the fundal region of the uterus most likely a fibroid measuring up to 7 to 8 cm. Abdominal ultrasound was also taken which is negative for gallstones or any dilated ducts, but noted the possibility of renal disease. No known history of endoscopic colonoscopy. Home Meds Reported Medications No Known Medications* (NKM - No Known Medications*) ., 0 ., 0 Refills 12/05/18 Med list reviewed/reconciled: Yes Allergies: Coded Allergies: No Known Allergies (Unverified , 12/05/18) Patient History History Provided By: Patient, Medical Record [facility] Narrative Past Medical History: see triage record Past Surgical History: unable to obtain Pertinent Family History: none Last Menstrual Period: 11/17/18 Now: No Immunizations: UTD Reviewed Nursing Documentation: PMH: Agreed; PSxH: Agreed Past Medical History: No History, Except For Social History: Denies: smoking, alcohol use, drug use, other Review of Systems All Other Systems: negative except mentioned in HPI Physical Exam Vital Signs Date Time Temp Pulse Resp B/P (MAP) Pulse Ox O2 Delivery O2 Flow Rate FiO2 12/05/18 16:42 98.4 106 16 150/109 (123) 99 Room Air Sp02 EP Interpretation: reviewed, normal Labs Laboratory Tests Test 12/08/18 05:10 White Blood Count 3.7 K/UL (4.8-10.8) L Red Blood Count 3.91 M/UL (4.20-5.40) L Hemoglobin 12.7 G/DL (12.0-16.0) Hematocrit 37.6 % (37.0-47.0) Mean Corpuscular Volume 96 FL (80-99) Mean Corpuscular Hemoglobin 32.5 PG (27.0-31.0) H Mean Corpuscular Hemoglobin Concent 33.9 G/DL (32.0-36.0) Red Cell Distribution Width 10.8 % (11.6-14.8) L Platelet Count 213 K/UL (150-450) Mean Platelet Volume 6.4 FL (6.5-10.1) L Neutrophils (%) (Auto) 76.1 % (45.0-75.0) H Lymphocytes (%) (Auto) 11.2 % (20.0-45.0) L Monocytes (%) (Auto) 11.7 % (1.0-10.0) H Eosinophils (%) (Auto) 0.2 % (0.0-3.0) Basophils (%) (Auto) 0.8 % (0.0-2.0) Sodium Level 135 MMOL/L (136-145) L Potassium Level 3.6 MMOL/L (3.5-5.1) Chloride Level 102 MMOL/L (98-107) Carbon Dioxide Level 24 MMOL/L (21-32) Anion Gap 9 mmol/L (5-15) Blood Urea Nitrogen 6 mg/dL (7-18) L Creatinine 0.8 MG/DL (0.55-1.30) Estimat Glomerular Filtration Rate > 60 mL/min (>60) Glucose Level 107 MG/DL (74-106) H Uric Acid 2.2 MG/DL (2.6-7.2) L Calcium Level 9.0 MG/DL (8.5-10.1) # Phosphorus Level 1.6 MG/DL (2.5-4.9) L Magnesium Level 2.1 MG/DL (1.8-2.4) Total Bilirubin 0.2 MG/DL (0.2-1.0) Aspartate Amino Transf (AST/SGOT) 17 U/L (15-37) Alanine Aminotransferase (ALT/SGPT) 13 U/L (12-78) Alkaline Phosphatase 38 U/L (46-116) L Total Protein 6.7 G/DL (6.4-8.2) Albumin 3.2 G/DL (3.4-5.0) L Globulin 3.5 g/dL Albumin/Globulin Ratio 0.9 (1.0-2.7) L Hepatitis A IgM Antibody Pending Hepatitis B Surface Antigen Pending Hepatitis B Core IgM Antibody Pending Hepatitis C Antibody Pending HIV (1&2) Antibody Rapid Pending General Appearance: well appearing, no apparent distress, alert Head: normocephalic EENT: PERRL/EOMI, normal ENT inspection Neck: supple Respiratory: normal breath sounds, no respiratory distress Cardiovascular: normal rate Gastrointestinal: normal inspection, non tender, soft, normal bowel sounds, non -distended Rectal: deferred Genitourinary: no CVA tenderness Musculoskeletal: normal inspection, back normal Neurologic: normal inspection, alert, oriented x3, responsive Psychiatric: normal inspection, judgement/insight normal, memory normal Skin: normal inspection, normal color, no rash, warm/dry, palpation normal, well hydrated Lymphatic: normal inspection, no adenopathy Current Medications Current Medications Medications (Trade) Dose Ordered Sig/Oral Route PRN Reason Start Time Stop Time Status Last Admin Dose Admin Acetaminophen (Tylenol) 650 mg Q4H PRN ORAL fever (temp>100.5F) 12/07/18 23:45 01/04/19 19:44 12/08/18 06:32 Bisacodyl (Dulcolax) 10 mg BID PRN RECTAL Constipation 12/08/18 09:00 01/06/19 06:29 Calcitonin [place] (Miacalcin) 1 sprays DAILY NASAL 12/08/18 09:00 01/05/19 08:59 Cefepime HCl 1 gm/ Dextrose 55 ml @ 110 mls/hr Q8H IVPB 12/08/18 04:00 12/14/18 19:59 12/08/18 03:54 Clonidine HCl (Catapres Tab) 0.1 mg Q4H PRN ORAL bp 165 syst 12/08/18 02:30 01/04/19 22:29 Dextrose/ Electrolytes 1,000 ml @ 125 mls/hr Q8H IV 12/07/18 23:45 01/06/19 11:59 12/08/18 03:55 Docusate Sodium (Colace) 100 mg TID ORAL 12/08/18 09:00 01/05/19 08:59 Heparin Sodium (Porcine) (Heparin 5000 units/ml) 5,000 units EVERY 12 HOURS SUBQ 12/08/18 09:00 01/04/19 20:59 Lorazepam (Ativan 2mg/ml 1ml) 1 mg Q4H PRN IV agitation 12/07/18 23:45 12/12/18 19:44 Metoclopramide HCl (Reglan) 5 mg AC+HS ORAL 12/08/18 06:30 01/06/19 11:29 12/08/18 06:16 Morphine Sulfate (Morphine Sulfate) 2 mg Q4H PRN IVP severe Pain (Pain Scale 7-10) 12/07/18 23:45 12/12/18 19:44 Nitroglycerin (Ntg) 0.4 mg Q5M X 3 DOSES PRN SL Prn Chest Pain 12/07/18 23:45 01/04/19 19:44 Ondansetron HCl (Zofran) 4 mg Q6H PRN IVP Nausea & Vomiting 12/08/18 01:15 01/06/19 07:14 Pantoprazole (Protonix) 40 mg Q12HR ORAL 12/08/18 09:00 01/05/19 06:29 Potassium Phosphate 30 mm/ Sodium Chloride 285 ml @ 47.5 mls/hr ONCE IV 12/08/18 10:00 12/08/18 16:00 Promethazine HCl 25 mg/Sodium Chloride 56 ml @ 110 mls/hr Q6H PRN IV Refractory N/V 12/08/18 01:45 01/04/19 19:44 Sodium Phosphate (Fleet's Sodium Phosl Enema) 133 ml BID PRN RECTAL for constipation 12/08/18 09:00 01/06/19 06:29 Temazepam (Restoril) 15 mg HSPRN PRN ORAL Insomnia 12/08/18 19:45 12/12/18 19:44 GI: Plan Problems: (1) Electrolyte abnormality (2) Abdominal pain (3) Uterine fibroid Plan Abdominal pelvis CT reviewed noted 7 to 8 cm possible uterine fibroid Abdominal ultrasound negative for any biliary ductal dilation [employer]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 hydration plus electrolyte correction PPI bowel regime follow labs, hep panel Discussed with Dr. Nguyễn. Thank you for this patient referral, we will follow. The patient was seen and examined at bedside and all new and available data was reviewed in the patients chart. I agree with the above findings, impression and plan. (Patient seen earlier today. Signature stamp does not reflect patient encounter time.). - MD Janie PalmaBanner Cardon [facility] CenterMarco RESOURCE DEVELOPMENT MANAGER Dec 08, 2018 09:10
[2018-12-08] MEDS: Docusate 100mg cap ORAL SCH ×2 (09:25→13:08)
[2018-12-08] MEDS ORDERED: Potassium Phosphate 30 MM in NS 275 ML IV SCH (10:00)
--- NOTE | 2018-12-08 10:26 | Nephrology Progress Note ---
Assessment/Plan Problem List: (1) Hypercalcemia (2) Diffuse leiomyomatosis of uterus (3) Electrolyte abnormality Plan stop Hydrate- Nasal Calcitonin One dose Aredia 12/06/18 Lasix PRN PTH level and Vit D level pending OK to Dc and FU as OP Subjective ROS Limited/Unobtainable: No Objective Objective Last 24 Hour Vital Signs Date Time Temp Pulse Resp B/P (MAP) Pulse Ox O2 Delivery O2 Flow Rate FiO2 12/08/18 04:00 99.4 86 18 115/74 (88) 100 12/08/18 00:00 98.0 90 18 130/88 (102) 99 12/07/18 21:00 Room Air 12/07/18 20:00 99.7 95 16 117/83 (94) 100 12/07/18 19:26 99.7 12/07/18 16:00 93 12/07/18 16:00 99.1 87 20 119/82 (94) 100 12/07/18 12:45 98.2 91 18 123/86 (98) 100 12/07/18 12:00 101.1 91 18 123/86 (98) 100 12/07/18 12:00 86 Current Medications Medications (Trade) Dose Ordered Sig/Oral Route PRN Reason Start Time Stop Time Status Last Admin Dose Admin Acetaminophen (Tylenol) 650 mg Q4H PRN ORAL fever (temp>100.5F) 12/07/18 23:45 01/04/19 19:44 12/08/18 06:32 Bisacodyl (Dulcolax) 10 mg BID PRN RECTAL Constipation 12/08/18 09:00 01/06/19 06:29 Calcitonin [place] (Miacalcin) 1 sprays DAILY NASAL 12/08/18 09:00 01/05/19 08:59 12/08/18 10:17 Cefepime HCl 1 gm/ Dextrose 55 ml @ 110 mls/hr Q8H IVPB 12/08/18 04:00 12/14/18 19:59 12/08/18 03:54 Clonidine HCl (Catapres Tab) 0.1 mg Q4H PRN ORAL bp 165 syst 12/08/18 02:30 01/04/19 22:29 Docusate Sodium (Colace) 100 mg TID ORAL 12/08/18 09:00 01/05/19 08:59 12/08/18 09:25 Heparin Sodium (Porcine) (Heparin 5000 units/ml) 5,000 units EVERY 12 HOURS SUBQ 12/08/18 09:00 01/04/19 20:59 Lorazepam (Ativan 2mg/ml 1ml) 1 mg Q4H PRN IV agitation 12/07/18 23:45 12/12/18 19:44 Metoclopramide HCl (Reglan) 5 mg AC+HS ORAL 12/08/18 06:30 01/06/19 11:29 12/08/18 06:16 Ondansetron HCl (Zofran) 4 mg Q6H PRN IVP Nausea & Vomiting 12/08/18 01:15 01/06/19 07:14 12/08/18 10:20 Pantoprazole (Protonix) 40 mg Q12HR ORAL 12/08/18 09:00 01/05/19 06:29 12/08/18 09:25 Polyethylene Glycol (Miralax) 17 gm BEDTIME ORAL 12/08/18 21:00 01/07/19 20:59 Potassium Phosphate 30 mm/ Sodium Chloride 285 ml @ 47.5 mls/hr ONCE IV 12/08/18 10:00 12/08/18 16:00 12/08/18 10:17 Temazepam (Restoril) 15 mg HSPRN PRN ORAL Insomnia 12/08/18 19:45 12/12/18 19:44 Intake and Output 12/07/18 12/08/18 19:00 07:00 Intake Total 360 ml 1115 ml Balance 360 ml 1115 ml Intake Oral 360 ml 240 ml IV Total 875 ml # Voids 2 2 Laboratory Tests 12/08/18 05:10: White Blood Count 3.7L, Red Blood Count 3.91L, Hemoglobin 12.7, Hematocrit 37.6 , Mean Corpuscular Volume 96, Mean Corpuscular Hemoglobin 32.5H, Mean Corpuscular Hemoglobin Concent 33.9, Red Cell Distribution Width 10.8L, Platelet Count 213, Mean Platelet Volume 6.4L, Neutrophils (%) (Auto) 76.1H, Lymphocytes (%) (Auto) 11.2L, Monocytes (%) (Auto) 11.7H, Eosinophils (%) (Auto ) 0.2, Basophils (%) (Auto) 0.8, Sodium Level 135L, Potassium Level 3.6, Chloride Level 102, Carbon Dioxide Level 24, Anion Gap 9, Blood Urea Nitrogen 6L , Creatinine 0.8, Estimat Glomerular Filtration Rate > 60, Glucose Level 107H, Uric Acid 2.2L, Calcium Level 9.0#, Phosphorus Level 1.6L, Magnesium Level 2.1, Total Bilirubin 0.2, Aspartate Amino Transf (AST/SGOT) 17, Alanine Aminotransferase (ALT/SGPT) 13, Alkaline Phosphatase 38L, Total Protein 6.7, Albumin 3.2L, Globulin 3.5, Albumin/Globulin Ratio 0.9L, Hepatitis A IgM Antibody [Pending], Hepatitis B Surface Antigen [Pending], Hepatitis B Core IgM Antibody [Pending], Hepatitis C Antibody [Pending], HIV (1&2) Antibody Rapid Negative Height (Feet): 5 Weight (Pounds): 120 General Appearance: no apparent distress Objective no change Alfredo Charles MD Dec 08, 2018 10:26
[2018-12-08 11:48] VITALS: BP 118/75
--- NOTE | 2018-12-08 12:01 | NUR ---
RD ASSESSMENT & RECOMMENDATIONS SEE CARE ACTIVITY FOR COMPLETE ASSESSMENT DAILY ESTIMATED NEEDS: Needs based on General 52kg 25-30 kcals/kg 9052-8406 total kcals .8-1 g protein/kg 42-52 g total protein 25-30 mL/kg 2364-9633 total fluid mLs NUTRITION DIAGNOSIS: Altered nutrition related lab values r/t clinical status as evidenced by hypercalcemia on adm (Ca=14.6), now wnl. CURRENT DIET:Now low fat PO DIET RECOMMENDATIONS: Lactose Free/ Dairy free diet ADDITIONAL RECOMMENDATIONS: 1) Obtain a standing weight 2) Provided pt w/ Low Calcium diet edu 3) Monitor lytes, replete daily
--- NOTE | 2018-12-08 12:28 | Diagnostic Imaging Report ---
Indication: Hypercalcemia Technique: Grayscale and duplex images of the thyroid Comparison: none Findings: Right thyroid lobe measures 4.2 cm length x 1.3 cm AP. Left thyroid lobe measures 3.3 cm length x 0.8 cm AP. Both thyroid lobes demonstrate normal echogenicity. In the upper pole of the left thyroid lobe, there is a subtle isoechoic to hyperechoic wider than tall solid noncalcified 1 cm nodule. In the lower pole of the left thyroid lobe, there is an isoechoic to hyperechoic wider than tall solid noncalcified nodule that measures 1.3 cm long axis dimension. 2 small nodules are seen in the fat inferior to the left thyroid, measuring 6 mm in diameter. Prominent bilateral neck nodes with preserved architecture are noted Impression: Questionable small left upper and lower pole thyroid nodules. If real, these are TI RADS 3 lesion for which based on their size no further follow-up is necessary Unremarkable right thyroid lobe 2 small nodules inferior to the left thyroid lobe, nonspecific but probably representing small nodes. Prominent but otherwise unremarkable appearing neck nodes are seen bilaterally
--- NOTE | 2018-12-08 13:06 | Pulmonology Progress Note ---
Assessment/Plan Problems: (1) Hypercalcemia (2) Electrolyte abnormality Assessment/Plan Ca is back to normal got Aridia PTH level pending pt needs outpatient f/u dc home, pt aware that she needs to see a health insurance sales agent. Subjective ROS Limited/Unobtainable: Yes Constitutional: Reports: no symptoms HEENT: Repors: no symptoms Allergies: Coded Allergies: No Known Allergies (Unverified , 12/05/18) Objective Last 24 Hour Vital Signs Date Time Temp Pulse Resp B/P (MAP) Pulse Ox O2 Delivery O2 Flow Rate FiO2 12/08/18 11:48 98.2 73 22 118/75 (89) 100 12/08/18 09:00 Room Air 12/08/18 08:00 98.8 76 20 109/72 (84) 100 12/08/18 04:00 99.4 86 18 115/74 (88) 100 12/08/18 00:00 98.0 90 18 130/88 (102) 99 12/07/18 21:00 Room Air 12/07/18 20:00 99.7 95 16 117/83 (94) 100 12/07/18 19:26 99.7 12/07/18 16:00 93 12/07/18 16:00 99.1 87 20 119/82 (94) 100 Intake and Output 12/07/18 12/08/18 19:00 07:00 Intake Total 360 ml 1115 ml Balance 360 ml 1115 ml Intake Oral 360 ml 240 ml IV Total 875 ml # Voids 2 2 General Appearance: WD/WN HEENT: normocephalic, atraumatic Respiratory/Chest: chest wall non-tender, lungs clear Breasts: no masses Cardiovascular: normal peripheral pulses Abdomen: normal bowel sounds, no organomegaly Genitourinary: normal external genitalia Extremities: no clubbing Skin: no rash 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, normal mood/affect Microbiology Date/Time Source Procedure Growth Status 12/05/18 17:19 Urine,Clean Catch Urine Culture - Final Escherichia Coli Complete Laboratory Tests 12/08/18 05:10: White Blood Count 3.7L, Red Blood Count 3.91L, Hemoglobin 12.7, Hematocrit 37.6 , Mean Corpuscular Volume 96, Mean Corpuscular Hemoglobin 32.5H, Mean Corpuscular Hemoglobin Concent 33.9, Red Cell Distribution Width 10.8L, Platelet Count 213, Mean Platelet Volume 6.4L, Neutrophils (%) (Auto) 76.1H, Lymphocytes (%) (Auto) 11.2L, Monocytes (%) (Auto) 11.7H, Eosinophils (%) (Auto ) 0.2, Basophils (%) (Auto) 0.8, Sodium Level 135L, Potassium Level 3.6, Chloride Level 102, Carbon Dioxide Level 24, Anion Gap 9, Blood Urea Nitrogen 6L , Creatinine 0.8, Estimat Glomerular Filtration Rate > 60, Glucose Level 107H, Uric Acid 2.2L, Calcium Level 9.0#, Phosphorus Level 1.6L, Magnesium Level 2.1, Total Bilirubin 0.2, Aspartate Amino Transf (AST/SGOT) 17, Alanine Aminotransferase (ALT/SGPT) 13, Alkaline Phosphatase 38L, Total Protein 6.7, Albumin 3.2L, Globulin 3.5, Albumin/Globulin Ratio 0.9L, Hepatitis A IgM Antibody [Pending], Hepatitis B Surface Antigen [Pending], Hepatitis B Core IgM Antibody [Pending], Hepatitis C Antibody [Pending], HIV (1&2) Antibody Rapid Negative Current Medications Medications (Trade) Dose Ordered Sig/Oral Route PRN Reason Start Time Stop Time Status Last Admin Dose Admin Acetaminophen (Tylenol) 650 mg Q4H PRN ORAL fever (temp>100.5F) 12/07/18 23:45 01/04/19 19:44 12/08/18 06:32 Bisacodyl (Dulcolax) 10 mg BID PRN RECTAL Constipation 12/08/18 09:00 01/06/19 06:29 Calcitonin [place] (Miacalcin) 1 sprays DAILY NASAL 12/08/18 09:00 01/05/19 08:59 12/08/18 10:17 Cefepime HCl 1 gm/ Dextrose 55 ml @ 110 mls/hr Q12HR@0000,1200 IVPB 12/09/18 00:00 12/16/18 00:00 Docusate Sodium (Colace) 100 mg TID ORAL 12/08/18 09:00 01/05/19 08:59 12/08/18 09:25 Lorazepam (Ativan 2mg/ml 1ml) 1 mg Q4H PRN IV agitation 12/07/18 23:45 12/12/18 19:44 Metoclopramide HCl (Reglan) 5 mg AC+HS ORAL 12/08/18 06:30 01/06/19 11:29 12/08/18 11:56 Ondansetron HCl (Zofran) 4 mg Q6H PRN IVP Nausea & Vomiting 12/08/18 01:15 01/06/19 07:14 12/08/18 10:20 Pantoprazole (Protonix) 40 mg Q12HR ORAL 12/08/18 09:00 01/05/19 06:29 12/08/18 09:25 Polyethylene Glycol (Miralax) 17 gm BEDTIME ORAL 12/08/18 21:00 01/07/19 20:59 Potassium Phosphate 30 mm/ Sodium Chloride 285 ml @ 47.5 mls/hr ONCE IV 12/08/18 10:00 12/08/18 16:00 12/08/18 10:17 Temazepam (Restoril) 15 mg HSPRN PRN ORAL Insomnia 12/08/18 19:45 12/12/18 19:44 Kermit Silva MD Dec 08, 2018 13:06
--- NOTE | 2018-12-08 14:31 | General Progress Note ---
Assessment/Plan Problem List: (1) Abdominal pain ICD Codes: R10.9 - Unspecified abdominal pain SNOMED: 85398549 (2) Head ache ICD Codes: R51 - Headache SNOMED: 87902167 (3) Acute exacerbation of chronic low back pain ICD Codes: M54.5 - Low back pain; G89.29 - Other chronic pain SNOMED: 952330003, 797265073 (4) Hypercalcemia ICD Codes: E83.52 - Hypercalcemia SNOMED: 55687481 (5) Diffuse leiomyomatosis of uterus ICD Codes: D39.0 - Neoplasm of uncertain behavior of uterus SNOMED: 20914743 Status: stable, progressing Assessment/Plan: diet ivf gi f/u pain control cbc bmp am dc plan Subjective Constitutional: Reports: weakness Allergies: Coded Allergies: No Known Allergies (Unverified , 12/05/18) All Systems: reviewed and negative except above Subjective calm in bed Objective Last 24 Hour Vital Signs Date Time Temp Pulse Resp B/P (MAP) Pulse Ox O2 Delivery O2 Flow Rate FiO2 12/08/18 11:48 98.2 73 22 118/75 (89) 100 12/08/18 09:00 Room Air 12/08/18 08:00 98.8 76 20 109/72 (84) 100 12/08/18 04:00 99.4 86 18 115/74 (88) 100 12/08/18 00:00 98.0 90 18 130/88 (102) 99 12/07/18 21:00 Room Air 12/07/18 20:00 99.7 95 16 117/83 (94) 100 12/07/18 19:26 99.7 12/07/18 16:00 93 12/07/18 16:00 99.1 87 20 119/82 (94) 100 Intake and Output 12/07/18 12/08/18 19:00 07:00 Intake Total 360 ml 1115 ml Balance 360 ml 1115 ml Intake Oral 360 ml 240 ml IV Total 875 ml # Voids 2 2 Laboratory Tests 12/08/18 05:10: White Blood Count 3.7L, Red Blood Count 3.91L, Hemoglobin 12.7, Hematocrit 37.6 , Mean Corpuscular Volume 96, Mean Corpuscular Hemoglobin 32.5H, Mean Corpuscular Hemoglobin Concent 33.9, Red Cell Distribution Width 10.8L, Platelet Count 213, Mean Platelet Volume 6.4L, Neutrophils (%) (Auto) 76.1H, Lymphocytes (%) (Auto) 11.2L, Monocytes (%) (Auto) 11.7H, Eosinophils (%) (Auto ) 0.2, Basophils (%) (Auto) 0.8, Sodium Level 135L, Potassium Level 3.6, Chloride Level 102, Carbon Dioxide Level 24, Anion Gap 9, Blood Urea Nitrogen 6L , Creatinine 0.8, Estimat Glomerular Filtration Rate > 60, Glucose Level 107H, Uric Acid 2.2L, Calcium Level 9.0#, Phosphorus Level 1.6L, Magnesium Level 2.1, Total Bilirubin 0.2, Aspartate Amino Transf (AST/SGOT) 17, Alanine Aminotransferase (ALT/SGPT) 13, Alkaline Phosphatase 38L, Total Protein 6.7, Albumin 3.2L, Globulin 3.5, Albumin/Globulin Ratio 0.9L, Hepatitis A IgM Antibody [Pending], Hepatitis B Surface Antigen [Pending], Hepatitis B Core IgM Antibody [Pending], Hepatitis C Antibody [Pending], HIV (1&2) Antibody Rapid Negative Height (Feet): 5 Weight (Pounds): 120 General Appearance: alert EENT: normal ENT inspection Neck: normal alignment Cardiovascular: normal peripheral pulses, normal rate, regular rhythm Respiratory/Chest: chest wall non-tender, lungs clear, normal breath sounds Abdomen: normal bowel sounds, non tender, soft Extremities: normal inspection Edema: no edema noted Arm (L), no edema noted Arm (R), no edema noted Leg (L), no edema noted Leg (R), no edema noted Pedal (L), no edema noted Pedal (R), no edema noted Generalized Neurologic: responsive, motor weakness Skin: normal pigmentation, warm/dry Lc Gomez DO Dec 08, 2018 14:31
--- NOTE | 2018-12-08 15:53 | NUR ---
NURSE NOTES: Patient discharged home as ordered. Stable. Denies pain or SOB. Patient was given thorough discharge instructions by RN, patient verbalized understanding. Patient has all belongings. No IV access. Patient's skin is clean, dry, and intact. Wristband removed. Patient assisted downstairs by RN without incident.
[2018-12-08] MEDS ORDERED: NS 275ml ONE (15:54)
[2018-12-08] MEDS ORDERED: Tubing IV Secondary IV ONE (15:54)
[2018-12-08] MEDS ORDERED: Miralax 17gm pkt ORAL SCH (21:00)
--- NOTE | 2018-12-08 23:46 | Cardiology Progress Note ---
Objective Last 24 Hour Vital Signs Date Time Temp Pulse Resp B/P (MAP) Pulse Ox O2 Delivery O2 Flow Rate FiO2 12/08/18 11:48 98.2 73 22 118/75 (89) 100 12/08/18 09:00 Room Air 12/08/18 08:00 98.8 76 20 109/72 (84) 100 12/08/18 04:00 99.4 86 18 115/74 (88) 100 12/08/18 00:00 98.0 90 18 130/88 (102) 99 Intake and Output 12/07/18 12/08/18 19:00 07:00 Intake Total 360 ml 1115 ml Balance 360 ml 1115 ml Intake Oral 360 ml 240 ml IV Total 875 ml # Voids 2 2 Laboratory Tests Test 12/08/18 05:10 White Blood Count 3.7 K/UL (4.8-10.8) L Red Blood Count 3.91 M/UL (4.20-5.40) L Hemoglobin 12.7 G/DL (12.0-16.0) Hematocrit 37.6 % (37.0-47.0) Mean Corpuscular Volume 96 FL (80-99) Mean Corpuscular Hemoglobin 32.5 PG (27.0-31.0) H Mean Corpuscular Hemoglobin Concent 33.9 G/DL (32.0-36.0) Red Cell Distribution Width 10.8 % (11.6-14.8) L Platelet Count 213 K/UL (150-450) Mean Platelet Volume 6.4 FL (6.5-10.1) L Neutrophils (%) (Auto) 76.1 % (45.0-75.0) H Lymphocytes (%) (Auto) 11.2 % (20.0-45.0) L Monocytes (%) (Auto) 11.7 % (1.0-10.0) H Eosinophils (%) (Auto) 0.2 % (0.0-3.0) Basophils (%) (Auto) 0.8 % (0.0-2.0) Sodium Level 135 MMOL/L (136-145) L Potassium Level 3.6 MMOL/L (3.5-5.1) Chloride Level 102 MMOL/L (98-107) Carbon Dioxide Level 24 MMOL/L (21-32) Anion Gap 9 mmol/L (5-15) Blood Urea Nitrogen 6 mg/dL (7-18) L Creatinine 0.8 MG/DL (0.55-1.30) Estimat Glomerular Filtration Rate > 60 mL/min (>60) Glucose Level 107 MG/DL (74-106) H Uric Acid 2.2 MG/DL (2.6-7.2) L Calcium Level 9.0 MG/DL (8.5-10.1) # Phosphorus Level 1.6 MG/DL (2.5-4.9) L Magnesium Level 2.1 MG/DL (1.8-2.4) Total Bilirubin 0.2 MG/DL (0.2-1.0) Aspartate Amino Transf (AST/SGOT) 17 U/L (15-37) Alanine Aminotransferase (ALT/SGPT) 13 U/L (12-78) Alkaline Phosphatase 38 U/L (46-116) L Total Protein 6.7 G/DL (6.4-8.2) Albumin 3.2 G/DL (3.4-5.0) L Globulin 3.5 g/dL Albumin/Globulin Ratio 0.9 (1.0-2.7) L Hepatitis A IgM Antibody Pending Hepatitis B Surface Antigen Pending Hepatitis B Core IgM Antibody Pending Hepatitis C Antibody Pending HIV (1&2) Antibody Rapid Negative (NEGATIVE) Parker Bailey MD Dec 08, 2018 23:46
[2018-12-09] MEDS ORDERED: Cefepime HCl 1 GM in D5W 55 ML IVPB SCH ×2
--- NOTE | 2018-12-09 13:39 | Discharge Summary ---
Discharge Summary Discharge Summary _ DATE OF ADMISSION: 12/05/2018 DATE OF DISCHARGE: 12/08/2018 DISCHARGED BY: Dr Gomez REASON FOR ADMISSION: 38 years old female with no significant past medical history, presented with acute onset of left lower quadrant abdominal pain , associated with multiply bouts of nonbloody emesis. Symptoms were continued for 4 days. Patient also reported constipation. Last time her bowel movement was in shape of pellets, however she denies any blood in stool. No fever or chills. No chest pain or shortness of breath. No dysuria, no vaginal bleeding, no hematuria . Patient also complained of new onset of a headache 5 out of 10,, without radiation, started few weeks ago. Patient denied any injury to her head or eyes .No falls. No history of alcohol abuse, smoking or psychiatric history. Upon evaluation blood pressure was elevated 150/109. Patient was slightly tachycardic 106. Chest x-ray revealed no acute findings. CT of the abdomen and pelvis demonstrated no free fluid. No nephrolithiasis or hydronephrosis . Appendix normal . Non-obstructive bowel gas pattern . Large mass in the fundal region of the uterus , likely a fibroid, measuring about 7 to 8 cm[address] of the head revealed no mass-effect, edema or acute bleeding. Laboratory work-up revealed no leukocytosis , stable hemoglobin and hematocrit. Calcium 14.6. Troponin 0.004. Stable LFT. Lipase 57. Protein 8.9. Urinalysis revealed moderate bacteria , pyuria . Urine toxicology screen was positive for marijuana. Serum alcohol level less than 3. Patient was admitted for hypercalcemia. CONSULTANTS: case therapist Dr. Bailey pulmonary Dr. Silva ID specialist Dr. De Dios content checker Dr. Charles racing board marker/oncologist Dr. Collazo [facility] COURSE: Patient admitted to medical surgical floor. Patient started on the IV hydration. TSH within normal limits . PTH and vitamin D level still pending at the time of this dictation. Patient started on nasal calcitonin. Renal parameters and electrolytes were closely monitored. Electrolytes corrected as needed/phosphorus , magnesium. Patient received one dose of Aredia. Patient received one dose of Lasix. Calcium level back to normal-9.- Patient started on empiric antibiotics for urinary tract infection. Urine culture revealed E. coli. Per infectious disease specialist, abdominal pain , nausea with constipation were possibly due to viral gastroenteritis versus urinary tract infection. GI specialist seen and evaluated patient. Abdominal ultrasound revealed no evidence of biliary ductal dilatation. Symptomatic treatment provided. Antiemetic provided as needed. Pain management was addressed . Bowel regimen instituted. Patient was on IV hydration and oral hydration encouraged. Electrolytes further corrected as needed. Patient started on PPI. Disaster Recovery Consultant evaluated patient secondary to tachycardia. Sinus tachycardia was likely due to hypovolemia , as patient had multiply episodes of emesis. Patient was vigorously hydrated to increase intravascular volume . Hypercalcemia resolved. Patient initially with elevated blood pressure but blood pressure stabilized. Initially noted elevated protein. Serum protein electrophoresis was within normal limits. No abnormal protein bands were identified. Hemoglobin and hematocrit remained stable. Thyroid ultrasound revealed questionable small left upper and lower pole thyroid nodules. If real, they are TI RADS 3 lesions, for which (based on their size )no further evaluation should be necessary. Patient clinically stabilized and was ready for discharge. FINAL DIAGNOSES: Symptomatic hypercalcemia -resolved Abdominal pain with nausea and constipation -resolved Possibly viral gastritis UTI with E. coli Diffuse leiomyomatosis of uterus Electrolyte abnormality DISCHARGE MEDICATIONS: See Medication Reconciliation list. DISCHARGE INSTRUCTIONS: Patient was discharged home. Follow up with primary care provider in one week. I have been assigned to dictate discharge summary for this account. I was not involved in the patient's management. Ele Felder NP Dec 09, 2018 13:39
== END 2018-12-08 15:55 | disposition home or self-care (01) | DRG 641 ==
LOC: EMR 18:09 → 2E 18:33 → EDBEDREQ 19:13 → 3E 12-07 23:13
DX: E83.52 Hypercalcemia (principal); N39.0 Urinary tract infection, site not specified; R10.32 Left lower quadrant pain; A08.4 Viral intestinal infection, unspecified; B96.20 Unspecified Escherichia coli [E. coli] as the cause of diseases classified elsewhere; I10 Essential (primary) hypertension; R00.0 Tachycardia, unspecified; R51 Headache; D25.9 Leiomyoma of uterus, unspecified; E87.8 Other disorders of electrolyte and fluid balance, not elsewhere classified
CPT/HCPCS: 36415; 70450; 71045; 74176; 76536; 76700; 80053; 80061; 80307; 80329; 81003; 81025; 82150; 82306; 82550; 82553; 82977; 83036; 83690; 83735; 83880; 83970; 84100; 84165; 84443; 84484; 84550; 85025; 85610; 85730; 86140; 86703; 86705; 86709; 86803; 86850; 86900; 86901; 87086; 87181; 87340; 93005; 96361; 96372; 96374; 97803; 99285; J2405; J2430; J2765